=== PATIENT | female | born 1975 | race Caucasian/White ===

== ENCOUNTER → 2019-08-07 | Outpatient (CLI) | payer MEDICAID, BC ==
--- NOTE | 2019-08-07 09:34 | US ---
EXAMINATION TYPE: US thyroid st tissue head/neck DATE OF EXAM: 08/07/2019 COMPARISON: NONE CLINICAL HISTORY: E04.1 Thyroid Nodule. Thyroid nodule, patient on thyroid meds GLAND SIZE: Right Lobe: 4.3 x 1.0 x 1.8 cm Overall Parenchyma: homogenous Left Lobe: 4.1 x 1.2 x 1.5 cm Overall Parenchyma: heterogeneous Isthmus Thickness: 0.3 cm NODULES RIGHT: # of nodules measured on right: 1 1. 0.9 X 0.7 x 0.8 cm hyperechoic solid nodule at the lower pole with well-defined margins. This no dule is wider than tall and shows intranodular vascularity. Prior size: no previous LEFT: # of nodules measured on left: 1 1. 0.6 X 0.5 x 0.8 cm hypoechoic solid nodule at the medial mid pole with well-defined margins. Thi s nodule is wider than tall and shows intranodular vascularity. Prior size: no previous ISTHMUS: # of nodules measured in the isthmus: 0 Bilateral neck scanned, no evidence of lymphadenopathy. IMPRESSION: Bilateral subcentimeter nodules. Nodule on the left is somewhat increased vascularity. Periphery.
== END ==
LOC: RADUSWWP 08:42
PROVIDERS: ATTEND Family Medicine
DX: E04.2 Nontoxic multinodular goiter (principal); R22.0 Localized swelling, mass and lump, head
CPT/HCPCS: 76536

== ENCOUNTER → 2019-11-08 | Outpatient (CLI) | payer MEDICAID, BC ==
--- NOTE | 2019-11-13 13:09 | MM ---
Reason for exam: screening (asymptomatic). Last mammogram was performed 1 year and 3 months ago. Physical Findings: A clinical breast exam by your physician is recommended on an annual basis and results should be correlated with mammographic findings. MG 3D Screen Mammo Imp/Cad Bilateral CC and MLO view(s) were taken. Prior study comparison: August 06, 2018, mammogram. April 15, 2017, mammogram. The breast tissue is heterogeneously dense. This may lower the sensitivity of mammography. No suspicious abnormality. Bilateral retropectoral silicone implants. No significant changes when compared with prior studies. ASSESSMENT: Negative, BI-RAD 1 RECOMMENDATION: Routine screening mammogram of both breasts in 1 year.
== END | disposition home or self-care (01) ==
LOC: RADMAMWWP 13:19
PROVIDERS: ATTEND Family Medicine
DX: Z12.31 Encounter for screening mammogram for malignant neoplasm of breast (principal)
CPT/HCPCS: 77063; 77067

== ENCOUNTER → 2020-08-13 | Outpatient (CLI) | payer MEDICAID, BC ==
--- NOTE | 2020-08-13 08:53 | US ---
EXAMINATION TYPE: US thyroid st tissue head/neck DATE OF EXAM: 08/13/2020 COMPARISON: US 08/07/2019 CLINICAL HISTORY: E04.1 SINGLE THYROID NODULE. GLAND SIZE: Right Lobe: 4.9 x 1.2 x 1.4 cm Overall Parenchyma: heterogenous Left Lobe: 4.2 x 1.1 x 1.6 cm Overall Parenchyma: heterogeneous Isthmus Thickness: 0.3 cm NODULES RIGHT: # of nodules measured on right: 1 1. 0.8 X 0.7 x 0.5 cm solid or almost completely solid, hyperechoic nodule, which is wider than macie l, with smooth margins, without echogenic foci. Prior size: 0.9 x 0.7 x 0.8 cm LEFT: # of nodules measured on left: 1. 0.7 X 0.5 x 0.8 cm solid or almost completely solid, hypoechoic nodule, which is wider than tall , with smooth margins, without echogenic foci. Prior size: 0.6 x 0.5 x 0.8 cm ISTHMUS: # of nodules measured in the isthmus: 0 Bilateral neck scanned, no evidence of lymphadenopathy. IMPRESSION: 1. Stable subcentimeter thyroid nodules. 2. Heterogeneous thyroid tissue correlate for thyroiditis.
== END | disposition home or self-care (01) ==
LOC: RADUSWWP 08:11
PROVIDERS: ATTEND Family Medicine
DX: E04.2 Nontoxic multinodular goiter (principal); R93.89 Abnormal findings on diagnostic imaging of other specified body structures
CPT/HCPCS: 76536

== ENCOUNTER 2020-10-17 07:12 | Day surgery (SDC) | payer MEDICAID, BC ==
[2020-10-15 15:12] VITALS: BMI 40.4
[~2020-10-17 07:12] MED LIST: LACTATED RINGERS 1,000 ML IV SCH; LIDOCAINE 1% (10MG/ML) FOR IV START INTRADERMA PRN
[2020-10-17 07:30] VITALS: TEMP 97.4
[2020-10-17] MEDS ORDERED: PROPOFOL 10 MG/ML 20 ML VIAL IV ONE (08:15)
[2020-10-17] MEDS ORDERED: LIDOCAINE 1% INJ 10MG/ML (20 ML MDV) ONE (08:15)
--- NOTE | 2020-10-17 08:35 | P.PCN ---
Date of Procedure: 10/17/20 Description of Procedure: BRIEF HISTORY: Patient is a 45-year-old female presenting for outpatient esophagogastroduodenoscopy evaluation of GERD. She reports a long-standing history of reflux. Frequent symptoms, however improve control on omeprazole therapy. No prior EGD. PROCEDURE PERFORMED: Esophagogastroduodenoscopy with biopsy. PREOPERATIVE DIAGNOSIS: GERD, heartburn . ESTIMATED BLOOD LOSS: Minimal. IV sedation per anesthesia. PROCEDURE: After informed consent was obtained, the patient was brought into the endoscopy unit. IV sedation was administered by Anesthesia under continuous monitoring. Initially the Olympus GIF-190 video endoscope was inserted into the mouth. Esophagus intubated without any difficulty. It was gradually advanced into the stomach and duodenum and carefully examined. The bulb and the second part of the duodenum appeared normal., With biopsies taken to rule out celiac sprue The scope at this time was withdrawn to the stomach, adequately insufflated with air, and upon careful examination, mucosa of the antrum, body, cardia and the fundus appeared normal, Except for some mild punctate erythema in the antrum and body suggestive of mild gastritis with biopsies taken. The scope was then withdrawn into the esophagus. The GE junction was located at 40 cm from the incisors, and biopsied. The esophagus appeared normal. There were no erosions or ulcerations seen and the patient tolerated the procedure well. IMPRESSION: 1. Mild gastritis . 2. Biopsies of the duodenum, antrum body and GE junction. 3. No evidence of ulceration, esophagitis or other abnormalities on evaluation of the esophagus. RECOMMENDATIONS: The findings of this examination were discussed with the patient.. Okay to resume diet. Okay to resume medications. Await pathology from biopsies. Follow up in the primary care office as previously scheduled.
[2020-10-17 08:43] VITALS: PULSE 77
[2020-10-17 08:59] VITALS: BP 107/74; RESP 18
== END 2020-10-17 09:11 | disposition home or self-care (01) ==
LOC: ORWHC2ENDO 07:12
PROVIDERS: ATTEND Internal Medicine
DX: K21.00 Gastro-esophageal reflux disease with esophagitis, without bleeding (principal); K29.50 Unspecified chronic gastritis without bleeding; E07.9 Disorder of thyroid, unspecified; D69.1 Qualitative platelet defects; Z79.899 Other long term (current) drug therapy; Z88.5 Allergy status to narcotic agent; Z79.890 Hormone replacement therapy; Z98.890 Other specified postprocedural states; Z90.710 Acquired absence of both cervix and uterus; Z98.51 Tubal ligation status; Z91.89 Other specified personal risk factors, not elsewhere classified
CPT/HCPCS: 88305; 43239; J2001; J2704

== ENCOUNTER → 2021-02-06 | Outpatient (CLI) | payer MEDICAID, BC ==
--- NOTE | 2021-02-07 09:04 | MM ---
Reason for exam: screening (asymptomatic). Last mammogram was performed 1 year and 3 months ago. History: Retro-pectoral silicone gel implants, 2019. Physical Findings: A clinical breast exam by your physician is recommended on an annual basis and results should be correlated with mammographic findings. MG 3D Screen Mammo Imp/Cad Bilateral CC, MLO, and ID view(s) were taken. Prior study comparison: November 08, 2019, bilateral MG 3d screen mammo imp/cad. August 06, 2018, mammogram. The breast tissue is heterogeneously dense. This may lower the sensitivity of mammography. Stable benign calcifications. Bilateral implants are intact. No significant changes when compared with prior studies. ASSESSMENT: Benign, BI-RAD 2 RECOMMENDATION: Routine screening mammogram of both breasts in 1 year.
== END | disposition home or self-care (01) ==
LOC: RADMAMWWP 13:01
PROVIDERS: ATTEND Family Medicine
DX: Z12.31 Encounter for screening mammogram for malignant neoplasm of breast (principal)
CPT/HCPCS: 77063; 77067

== ENCOUNTER 2021-05-24 16:35 | Emergency (ER) | payer OTHER, MEDICAID, BC ==
[2021-05-24 16:42] VITALS: BP 163/112; PULSE 71; RESP 16; TEMP 98
[2021-05-24] MEDS ORDERED: LIDOCAINE 5% PATCH TOPICAL STA (16:58)
[2021-05-24] MEDS ORDERED: CYCLOBENZAPRINE 5 MG TAB PO STA (16:58)
[2021-05-24] MEDS ORDERED: CYCLOBENZAPRINE 10 MG TAB PO STA (16:58)
[2021-05-24] MEDS ORDERED: KETOROLAC 15 MG/ML 1 ML VIAL IM STA (16:58)
--- NOTE | 2021-05-24 17:10 | ED ---
Back Pain HPI - General Chief Complaint: Back Pain/Injury Stated Complaint: Back injury/IHS Time Seen by Provider: 05/24/21 16:46 Source: patient Limitations: physical limitation - History of Present Illness Initial Comments: 45-year-old male presenting to the emergency department with a chief complaint of back pain. Patient reports she was working earlier today when she bent over, felt sudden onset of pain in the lower lumbar region without any radiation. Patient reports the pain is exacerbated with any movement, weightbearing, left and right rotation or laying down. States sitting still is the only alleviating factor. States she took Tylenol and Motrin at home with no significant improvement in symptoms. She denies any saddle anesthesia, urinary retention with overflow or bowel incontinence. Denies prior history of back pain. Denies any abdominal pain nausea vomiting diarrhea. Denies urinary or vaginal symptoms. - Related Data Home Medications Medication Instructions Recorded Confirmed Calcium Carbonate [Calcium] 600 mg PO DAILY 10/15/20 10/15/20 Cholecalciferol (Vitamin D3) 125 mcg PO DAILY 10/15/20 10/15/20 [Vitamin D3 (5000 Iu)] Levothyroxine Sodium [Synthroid] 75 mcg PO HS 10/15/20 10/15/20 Multivitamins, Thera [Multivitamin 1 tab PO DAILY 10/15/20 10/15/20 (formulary)] Omeprazole 40 mg PO HS 10/15/20 10/15/20 Vitamin C/Biotin [Hair, Skin and 1 each PO DAILY 10/15/20 10/15/20 Nails] Previous Rx's Medication Instructions Recorded Cyclobenzaprine [Flexeril] 10 mg PO TID PRN #15 tab 05/24/21 Allergies Allergy/AdvReac Type Severity Reaction Status Date / Time meperidine [From Demerol] AdvReac Confusion Verified 05/24/21 16:43 morphine AdvReac Confusion, Verified 05/24/21 16:43 itchy Review of Systems ROS Statement: Those systems with pertinent positive or pertinent negative responses have been documented in the HPI. ROS Other: All systems not noted in ROS Statement are negative. 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 w/no problems History of Any Multi-Drug Resistant Organisms: None Reported Past Surgical History: Breast Surgery, Hysterectomy, Tubal Ligation Additional Past Surgical History / Comment(s): breast implants, LEEP procedure Past Anesthesia/Blood Transfusion Reactions: Postoperative Nausea & Vomiting (PONV) Past Psychological History: No Psychological Hx Reported Smoking Status: Never smoker Past Alcohol Use History: None Reported Past Drug Use History: None Reported General Exam Limitations: physical limitation General appearance: alert, in no apparent distress Head exam: Present: atraumatic, normocephalic, normal inspection Eye exam: Present: normal appearance Pupils: Present: normal accommodation ENT exam: Present: normal exam, normal oropharynx, mucous membranes moist Neck exam: Present: normal inspection, full ROM. Absent: tenderness Respiratory exam: Present: normal lung sounds bilaterally. Absent: respiratory distress, wheezes, rales Cardiovascular Exam: Present: regular rate, normal rhythm, normal heart sounds. Absent: systolic murmur Extremities exam: Present: normal inspection, full ROM Back exam: Present: normal inspection, full ROM, tenderness (Lower lumbar tenderness) Neurological exam: Present: alert, oriented X3 Psychiatric exam: Present: normal affect, normal mood Skin exam: Present: warm, dry, intact, normal color Course Vital Signs 05/24/21 16:40 Temperature 98.0 F Pulse Rate 71 Respiratory 16 Rate Blood Pressure 163/112 O2 Sat by Pulse 97 Oximetry Medical Decision Making - Medical Decision Making 45-year-old female presenting to the emergency department with a chief complaint of back pain. On physical examination, tenderness over the lower lumbar region. Limit her range of motion left and right rotation due to pain. No concern for cauda equina at this time. Patient was given Toradol, Flexeril and Lidoderm patch. On reevaluation, she reports improvement in symptoms and wants to be discharged. X-ray showed degenerative disc changes in the lower lumbar spine. I gave her contact information to follow-up with retail presentation specialist. Return parameters were thoroughly discussed the patient was understanding and agreeable. Disposition Clinical Impression: Mechanical back pain, Strain of lumbar region Disposition: HOME SELF-CARE Condition: Stable Instructions (If sedation given, give patient instructions): Acute Low Back Pain (ED) Additional Instructions: Please return to the Emergency Department if symptoms worsen or any other concerns. Follow-up with retail presentation specialist Prescriptions: Cyclobenzaprine [Flexeril] 10 mg PO TID PRN #15 tab PRN Reason: Muscle Spasm Is patient prescribed a controlled substance at d/c from ED?: No Referrals: Darshan Neves MD [Primary Care Provider] - 1-2 days Flora Velazquez DO [Doctor of Osteopathic Medicine] - 1-2 days Time of Disposition: 17:58
--- NOTE | 2021-05-24 17:34 | XR ---
EXAMINATION TYPE: XR lumbar spine 2 or 3V DATE OF EXAM: 05/24/2021 COMPARISON: NONE HISTORY: Sharp low back pain TECHNIQUE: Frontal and lateral views of the lumbar spine with coned down lateral views of the lumbosa cral junction. FINDINGS: 5 lumbar type vertebral bodies. Vertebral body heights and alignment are maintained. No spondylolisth esis or spondylolysis. No acute fracture or subluxation. Mild multilevel degenerative disc changes with disc height loss seen osteophyte formation most pronou nced at L4-5 and L5-S1. Mild facet arthropathy of the lower lumbar spine most pronounced at L4-5 and L5-S1. IMPRESSION: 1. No acute fracture or subluxation. 2. Mild multilevel degenerative changes most pronounced at L4-5 and L5-S1.
== END 2021-05-24 18:10 | disposition home or self-care (01) ==
LOC: EC 16:35
DX: S39.012A Strain of muscle, fascia and tendon of lower back, initial encounter (principal); K21.9 Gastro-esophageal reflux disease without esophagitis; Z88.5 Allergy status to narcotic agent; Z79.890 Hormone replacement therapy; Z79.899 Other long term (current) drug therapy; X58.XXXA Exposure to other specified factors, initial encounter
CPT/HCPCS: 72100; 96372; 99283; J1885

== ENCOUNTER → 2021-12-25 | Outpatient (CLI) | payer MEDICAID, BC ==
[2021-12-25 13:56] VITALS: BP 138/87; PULSE 78; TEMP 98.1; BMI 38.5
--- NOTE | 2021-12-25 16:20 | P.HPBAR ---
Bariatric H&P - History & Physicial H&P Date: 12/25/21 History & Physicial: Visit/CC: initial clinic visit Patient initial contact: Initial weight: Initial weight in pounds: Height: 5 ft 10 in Initial BMI: Last weight: Current weight: 122.016 kg Current weight in pounds: 269.00 Current BMI: 38.5 [place] body weight (based on NIH guidelines): 68.039 kg Excess body weight loss: The patient is a 46 year-old F who presents for Bariatric Assessment. Patient seen today in the bariatric clinic to discuss bariatric surgical options. Patient has suffered with her weight for many years. Currently BMI 48. Patient suffers from mild sleep apnea, mild reflux symptoms. Patient says she has good relief of her heartburn with oral antiacid use. She had an EGD October 2020 showing mild gastritis. No hiatal hernia was seen. 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 She has had surgeries with no hemorrhagic complications or clotting issues. No history of DVT. No tobacco use. Patient is interested in sleeve gastrectomy. 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 w/no problems History of Any Multi-Drug Resistant Organisms: None Reported Past Surgical History: Breast Surgery, Hysterectomy, Tubal Ligation Additional Past Surgical History / Comment(s): breast implants, LEEP procedure Past Anesthesia/Blood Transfusion Reactions: Postoperative Nausea & Vomiting (PONV) Past Psychological History: No Psychological Hx Reported Smoking Status: Never smoker Past Alcohol Use History: None Reported Past Drug Use History: None Reported Surgical - Exam Vital Signs Temp Pulse BP 98.1 F 78 138/87 12/25/21 13:52 12/25/21 13:52 12/25/21 13:52 Physical exam: General: Well-developed, well-nourished HEENT: Normocephalic, sclerae nonicteric Abdomen: Nontender, nondistended Extremities: No edema Neuro: Alert and oriented Bariatric Assessment & Plan (1) Obesity (BMI 30-39.9) Narrative/Plan: 46-year-old female with severe obesity and associated comorbidities. Bariatric surgical options and their associated risks and benefits discussed in detail with the patient. Patient does have frequent heartburn although controlled with oral medications. Discussed long-term risk of increased reflux with sleeve gastrectomy as opposed to gastric bypass. Despite that patient would like to proceed with sleeve gastrectomy at this time. Do not require preoperative EGD because of the EGD performed one year ago. Patient will follow-up with me towards the tail end of her supervised weight loss. Status: Acute Bariatric Checklist Checklist: Plan: Checklist: EGD: 1. Hiatal hernia: 2. H. Pylori: HgbA1c: Vitamin D: Smoking: Primary care physician referral: dr mejia Psychiatry clearance: Cardiology clearance: Sleep study: Diet journal: VTE risk score: VTE risk level: Rehab needs at discharge:
== END ==
LOC: BARWHC3 13:31
PROVIDERS: ATTEND Surgery
DX: E66.01 Morbid (severe) obesity due to excess calories (principal); Z68.42 Body mass index [BMI] 45.0-49.9, adult; Z88.5 Allergy status to narcotic agent
CPT/HCPCS: 99211

== ENCOUNTER → 2022-03-20 | Outpatient (CLI) | payer MEDICAID, BC ==
--- NOTE | 2022-03-22 08:19 | US ---
EXAMINATION TYPE: US thyroid st tissue head/neck DATE OF EXAM: 03/20/2022 COMPARISON: Prior thyroid ultrasound August 13, 2020 CLINICAL HISTORY: E04.1 Thyroid Nodule. GLAND SIZE: Right Lobe: 5.2 x 1.2 x 1.6 cm Overall Parenchyma: heterogenous Left Lobe: 5.0 x 1.2 x 1.7 cm Overall Parenchyma: heterogeneous Isthmus Thickness: 0.4 cm NODULES RIGHT: # of nodules measured on right: 1 1. 0.7 X 0.6 x 0.6 cm, lower lateral, solid or almost completely solid, isoechoic nodule, which is wider than tall, with ill-defined margins, without echogenic foci. Prior size: 0.8 x 0.7 x 0.5 cm LEFT: # of nodules measured on left: 1 1. 0.9 X 0.6 x 1.0 cm, upper medial, solid or almost completely solid, hypoechoic nodule, which is wider than tall, with smooth margins, without echogenic foci. Prior size: 0.7 x 0.5 x 0.7 cm ISTHMUS: # of nodules measured in the isthmus: 0 Bilateral neck scanned, no evidence of lymphadenopathy. Persistent heterogeneous normal-sized thyroid with stable small single bilateral nodules. IMPRESSION: As above. No significant change from prior.
--- NOTE | 2022-03-23 08:59 | MM ---
Reason for Exam: Hx of breast augmentation, asymptomatic. Last mammogram was performed 1 year(s) and 2 month(s) ago. Patient History: Menarche at age 16. First Full-Term at age 20. Hysterectomy at age 32. 2019, Implant(s). Risk Values: [place] 5 year model risk: 0.5%. NCI Lifetime model risk: 6.4%. Prior Study Comparison: 08/06/2018 Screening Mammogram, Unknown. 11/08/2019 Bilateral Screening Mammogram, [facility]. 02/06/2021 Bilateral Screening Mammogram, [facility]. Tissue Density: There are scattered fibroglandular densities. Findings: Analyzed By CAD. Subpectoral bilateral breast implants are redemonstrated. Occasional scattered benign-appearing round calcification bilaterally are redemonstrated. Benign-appearing bilateral axillary nodes on current study. There is no suspicious group of microcalcifications or new suspicious mass in either breast. Overall Assessment: Benign, BI-RAD 2 Management: Screening Mammogram of both breasts in 1 year. A clinical breast exam by your physician is recommended on an annual basis and results should be correlated with mammographic findings. Electronically signed and approved by: Eleazar Ortiz M.D.
== END | disposition home or self-care (01) ==
LOC: RADUSWWP 16:05
PROVIDERS: ATTEND Family Medicine
DX: Z12.31 Encounter for screening mammogram for malignant neoplasm of breast (principal); E04.2 Nontoxic multinodular goiter; R92.1 Mammographic calcification found on diagnostic imaging of breast
CPT/HCPCS: 76536; 77063; 77067

== ENCOUNTER → 2022-03-23 | Outpatient (CLI) | payer MEDICAID, BC ==
[2022-03-23 10:23] VITALS: BP 137/91; PULSE 80; RESP 16; TEMP 97.9; BMI 39.4
--- NOTE | 2022-03-23 11:27 | P.BASOAP ---
Subjective Progress Note Date: 03/23/22 Principal diagnosis: Morbid obesity 46-year-old female returns for bariatric evaluation. Patient remains interested in sleeve gastrectomy. Suffers from mild sleep apnea and mild GERD symptoms. Current BMI 39.5. Patient has a history of platelet disorder. She has not seen hematology since 2016. No history of bleeding with prior surgeries. No tobacco use. Objective - Vital Signs Vital signs: Vital Signs Temp 97.9 F 03/23/22 10:15 Pulse 80 03/23/22 10:15 Resp 16 03/23/22 10:15 BP 137/91 03/23/22 10:15 Pulse Ox FiO2 Intake & Output 03/22/22 03/23/22 03/23/22 18:59 06:59 18:59 Weight 124.738 kg - Exam Abdomen: Soft, nontender, nondistended Assessment/Plan (1) Obesity (BMI 30-39.9) Narrative/Plan: 46-year-old female interested in sleeve gastrectomy. Review the surgical consent form in detail. All questions answered. Increased risk of postoperative reflux reviewed. Increased risk of postoperative bleeding because her platelets were also discussed. Will have patient seen by hematology preoperatively. We'll tentatively proceed with laparoscopic da [place] assisted sleeve gastrectomy, possible open in late June or early July. Patient's son is getting on June 27. The risks of bleeding, infection, stenosis, stricture, leak, abscess, fistula formation, peritonitis, poor weight loss, reflux, vomiting, conversion to an open procedure, aborting sleeve gastrectomy, MT, PE, DVT, and were discussed. The patient understands and wishes to proceed. Plan: Date: 03/23/22 Initial Weight: Initial BMI: Current Weight: 124.738 kg Current BMI: 39.4 Type of Surgery: Vertical Sleeve Gastrectomy Total Volume in Band: Previous Volume: Volume Removed: Volume Added: Band Size:
== END ==
LOC: BARWHC3 08:39
PROVIDERS: ATTEND Surgery
DX: E66.01 Morbid (severe) obesity due to excess calories (principal); Z68.39 Body mass index [BMI] 39.0-39.9, adult; Z98.84 Bariatric surgery status
CPT/HCPCS: 97804; 99211

== ENCOUNTER → 2022-06-10 | Outpatient (CLI) | payer MEDICAID, BC ==
--- NOTE | 2022-06-11 12:14 | NM ---
EXAMINATION TYPE: NM thyroid image w uptake DATE OF EXAM: 06/11/2022 COMPARISON: NONE HISTORY: E05.90 hyperthyroidism TECHNIQUE: Thyroid iodine uptake is calculated and images performed after the oral administration of 304 uCi 1-123 Capsule. FINDINGS: There is normal distribution of activity throughout the gland. The 4 hour iodine uptake is calculated at 17.8% (normal range 8-14%). The 24-hour iodine uptake is calculated at 42.6 % (juan luis l range 15-35%). Homogeneous distribution radiotracer throughout the thyroid lobes without evidence for hot or cold no dule at this time. IMPRESSION: Mildly elevated 4 and 24 hour uptake. Correlate with thyroid function testing.
== END | disposition home or self-care (01) ==
LOC: RADNMMAIN 08:29
PROVIDERS: ATTEND Internal Medicine Endocrinology, Diabetes & Metabolism
DX: E05.90 Thyrotoxicosis, unspecified without thyrotoxic crisis or storm (principal)
CPT/HCPCS: 78014; A9516

== ENCOUNTER 2022-07-20 11:15 | Inpatient (IN) | payer MEDICAID, BC ==
[2022-07-14 05:19] LABS: Basophils % (A) 1 %; Eosinophils # (A) 0.2 k/uL (0-0.7); Eosinophils % (A) 2 %; HCT 45.2 % (34.0-46.0); HGB 14.9 gm/dL (11.4-16.0); Lymphocytes # (A) 1.5 k/uL (1.0-4.8); Lymphocytes % (A) 20 %; MCH 27.5 pg (25.0-35.0); MCHC 32.9 g/dL (31.0-37.0); MCV 83.6 fL (80.0-100.0); Mean Platelet Volume 6.8; Monocytes # (A) 0.5 k/uL (0-1.0); Monocytes % (A) 7 %; Neutrophils # (A) 5.3 k/uL (1.3-7.7); Neutrophils % (A) 69 %; Platelet Count 225 k/uL (150-450); RBC 5.41 m/uL (3.80-5.40); WBC 7.7 k/uL (3.8-10.6)
[2022-07-14 05:30] LABS: ALT 19 U/L (4-34); AST 24 U/L (14-36); African American GFR (CKD) >90 (>60 ml/min/1.73 sqM); Albumin 4.9 g/dL (3.5-5.0); Alkaline Phosphatase 62 U/L (38-126); Anion Gap 13 mmol/L; Blood Urea Nitrogen 26 mg/dL (7-17); Calcium 9.9 mg/dL (8.4-10.2); Carbon Dioxide 24 mmol/L (22-30); Chloride 99 mmol/L (98-107); Globulin 2.4 g/dL; Glucose 105 mg/dL (74-99); Non-African American GFR(CKD) 89 (>60 ml/min/1.73 sqM); Potassium 4.4 mmol/L (3.5-5.1); Sodium 136 mmol/L (137-145); Total Bilirubin 0.4 mg/dL (0.2-1.3); Total Protein 7.3 g/dL (6.3-8.2)
[2022-07-14 05:47] LABS: T4, Free (Free Thyroxine) 1.18 ng/dL (0.78-2.19)
--- NOTE | 2022-07-20 10:08 | P.GSHP ---
History of Present Illness H&P Date: 07/20/22 Chief Complaint: Morbid obesity 46-year-old female initially seen in the office for bariatric assessment in December. Patient interested in sleeve gastrectomy. History of previous EGD by GI in early 2020 showing gastritis without hiatal hernia. Patient suffers with mild sleep apnea, mild reflux symptoms. Patient stated that she is told in the past she may have a bleeding disorder. She was seen by hematology and cleared for surgery. No history of DVT or dysphagia. No tobacco use. BMI on initial presentation 41, in March was 39.5. 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 w/no problems,. hyperthyroid History of Any Multi-Drug Resistant Organisms: None Reported Past Surgical History: Breast Surgery, Hysterectomy, Tubal Ligation Additional Past Surgical History / Comment(s): breast implants, LEEP procedure, EGD Past Anesthesia/Blood Transfusion Reactions: Postoperative Nausea & Vomiting (PONV) Additional Past Anesthesia/Blood Transfusion Reaction / Comment(s): PONV x1, no hx. of blood transfusion reaction Smoking Status: Never smoker - Past Family History Mother Family Medical History: No Reported History Medications and Allergies Home Medications Medication Instructions Recorded Confirmed Type Omeprazole 40 mg PO HS 10/15/20 07/10/22 History methIMAzole [Tapazole] 2.5 mg PO HS 07/10/22 07/10/22 History Allergies Allergy/AdvReac Type Severity Reaction Status Date / Time meperidine [From Demerol] AdvReac Confusion Verified 07/10/22 15:47 morphine AdvReac Confusion, Verified 07/10/22 15:47 itchy Surgical - Exam Physical exam: General: Well-developed, well-nourished HEENT: Normocephalic, sclerae nonicteric Abdomen: Nontender, nondistended Extremities: No edema Neuro: Alert and oriented Results - Labs 07/14/22 05:00 07/14/22 05:00 Assessment and Plan (1) Obesity (BMI 30-39.9) Narrative/Plan: 46-year-old female with obesity and comorbidities. We'll proceed with laparosco pic and she assisted sleeve gastrectomy, possible open. The risks of bleeding, infection, stenosis, stricture, leak, abscess, fistula formation, peritonitis, poor weight loss, reflux, vomiting, conversion to an open procedure, aborting sleeve gastrectomy, [place], PE, DVT, and were discussed. The patient understands and wishes to proceed. Status: Acute Code(s): E66.9 - OBESITY, UNSPECIFIED SNOMED Code(s): 677656930
[~2022-07-20 11:15] MED LIST changes: +DEXAMETHASONE SOD PHOSPHATE 4 MG/ML 1 ML VIAL IV ONE; +ENOXAPARIN 40 MG/0.4 ML SYRINGE SQ PRN; -LACTATED RINGERS 1,000 ML IV SCH; -LIDOCAINE 1% (10MG/ML) FOR IV START INTRADERMA PRN; +MIDAZOLAM 2 MG/2 ML VIAL IV PRN; +ONDANSETRON 4 MG/2 ML VIAL IVP ONE; +SCOPOLAMINE 1 MG/72 HR PATCH TRANSDERM ONE; +ceFAZolin 3 GM in SODIUM CHLORIDE 0.9% 100 ML IVPB PRN; +fentaNYL (PF) 50 MCG/ML 2 ML AMP IV PRN
[2022-07-20] MEDS ORDERED: LACTATED RINGERS 1,000 ML IV ONE ×3 (13:39→15:56)
[2022-07-20] MEDS ORDERED: DEXAMETHASONE SOD PHOSPHATE 4 MG/ML 1 ML VIAL IVP ONE (13:59)
[2022-07-20] MEDS ORDERED: ONDANSETRON 4 MG/2 ML VIAL IVP ONE (13:59)
[2022-07-20] MEDS ORDERED: SCOPOLAMINE 1 MG/72 HR PATCH TRANSDERM ONE (13:59)
[2022-07-20] MEDS ORDERED: NEOSTIGMINE 1 MG/ML 10 ML VIAL ONE (14:30)
[2022-07-20] MEDS ORDERED: PROPOFOL 10 MG/ML 20 ML VIAL IV ONE (14:30)
[2022-07-20] MEDS ORDERED: ROCURONIUM 10 MG/ML (5 ML VIAL) IV ONE (14:30)
[2022-07-20] MEDS ORDERED: LIDOCAINE 2% INJ 20 MG/ML (2 ML VIAL) ONE (14:30)
[2022-07-20] MEDS ORDERED: HYDROmorphone (PF) 1 MG/ML ONE (14:30)
[2022-07-20] MEDS ORDERED: fentaNYL (PF) 50 MCG/ML 2 ML AMP ONE (14:30)
[2022-07-20] MEDS ORDERED: KETOROLAC 15 MG/ML 1 ML VIAL ONE (14:30)
[2022-07-20] MEDS ORDERED: MIDAZOLAM 2 MG/2 ML VIAL ONE (14:30)
[2022-07-20] MEDS ORDERED: GLYCOPYRROLATE 0.2 MG/ML 2 ML VIAL ONE (14:30)
[2022-07-20] MEDS ORDERED: LIDOCAINE 1%-EPI 1:100,000 20 ML VIAL SQ ONE (14:53)
[2022-07-20] MEDS ORDERED: HYDROmorphone 0.5 MG/0.5 ML SYRINGE IVP ONE ×3 (16:25→17:13)
[2022-07-20] MEDS ORDERED: NALOXONE 0.4 MG/ML 1 ML VIAL IV PRN (16:27)
[2022-07-20] MEDS ORDERED: diphenhydrAMINE 50 MG/ML 1 ML VIAL IVP PRN (16:27)
[2022-07-20] MEDS ORDERED: HYOSCYAMINE ORAL DROPS 1.875 MG/15 ML BOTTLE PO PRN (16:27)
--- NOTE | 2022-07-20 16:30 | P.OP ---
Date of Procedure: 07/20/22 Procedure(s) Performed: PREOPERATIVE DIAGNOSIS: Morbid obesity, GERD, sleep apnea POSTOPERATIVE DIAGNOSIS: Same PROCEDURE: Da Carlota assisted laparoscopic sleeve gastrectomy SURGEON: Sánchez EBL: Minimal ANESTHESIA: General COMPLICATIONS: None OPERATIVE PROCEDURE: Patient was placed in the operating table in the supine position. The patient was then placed under general anesthesia at that time. The abdomen was prepped and draped in the usual sterile fashion. A 5 mm optical trocar was placed in the left upper quadrant 20 cm inferior to the xiphoid process. Insufflation took place up to 15 mmHg. No adhesions were seen. A 5 mm subxiphoid incision was made and the medium Radha retractor was used to elevate the left lobe of liver anteriorly. This was held in place using the fixed arm retractor. An additional 12 mm trocar was placed in the right paramedian location and 2 additional 8 mm trochars were placed in the left upper quadrant one medial and one lateral to the initially placed optical trocar. All of these trochars were placed along the same plane. The initial 5 was then switched to an 8 mm trocar. The robot was then docked appropriately. The 8 mm camera was placed in the left paramedian trocar site down viewing. A fenestrated bipolar was placed in arm 1, arm 3 had the vessel sealer, arm 4 had the small grasper retractor. The hiatus was inspected and there was no visible hiatal hernia. At that point I moved to the distal aspect of the greater curvature the stomach. The short gastric vasculature were divided using the vessel sealer. This dissection took place distally until we were 4 cm from the pylorus. The posterior adhesions were divided as well. The dissection then took place proximally along the stomach until the posterior short gastrics were divided and the fundus of the stomach was fully mobilized. Once the stomach was fully mobilized the blunt tipped 40-Occitan bougie dilator was advanced into the stomach and advanced all the way to the prepyloric location. The patient's stomach by palpation seemed to be of average thickness. No buttressing was utilized. A total of 6 staple loads were utilized using the 60 mm stapler. The first load was green, next 3 were blue, last 2 were white. The stomach was then placed in the right upper quadrant after it was fully excised. The oral gastric tube was reinserted. The stomach was insufflated with approximately 100 mL of methylene blue. No evidence of leak or obstruction was seen. Tisseel fibrin glue was then used along the length of the staple line. The robot was then undocked. The da Carlota laparoscope was used and the stomach was removed from the 12 mm trocar site without difficulty. The fascia at the 12mm site was closed using [id number] 0 Vicryl sutures with the laparoscopic suture passer and Efrain Henrik technique. The insufflation was evacuated. The skin at all 5 incisions were closed using 4-0 Monocryl sutures. Skin glue was then applied. DISPOSITION: Stable to recovery room
[2022-07-20] MEDS ORDERED: ONDANSETRON 4 MG/2 ML VIAL ONE (18:33)
[2022-07-20] MEDS: ACETAMINOPHEN IV (For NPO) 1,000 MG in EMPTY BAG 1 BAG IVPB SCH (18:35)
[2022-07-20] MEDS: LACTATED RINGERS 1,000 ML IV SCH (18:44)
--- NOTE | 2022-07-20 19:00 | P.CONS ---
History of Present Illness - Reason for Consult Consult date: 07/20/22 Medical Management Requesting physician: Vinnie Pozo - History of Present Illness History of Presenting Illness: Patient is a very pleasant 46-year-old female with a past medical history of GERD, morbid obesity with BMI of 36.6 kg/m and hyperthyroidism. She is currently admitted under surgical team status post Da Carlota assisted laparoscopic sleeve gastrectomy completed by Dr. Pozo. We have been consulted for medical management throughout her hospitalization. Patient seen and fully evaluated at the bedside. She currently reports mild postoperative pain and nausea but denies vomiting, chest pain, palpitations, shortness of breath, or experiencing any numbness/tingling/weakness/swelling in her extremities. RN has medicated patient for both pain and nausea at this time. Patient denies history of DVT or PE and is currently tolerating ice chips. Review of systems: Pertinent positives and negatives as discussed in HPI, a complete review of systems was performed and all other systems are negative. Physical exam: Vital signs reviewed and stable. General: Nontoxic, no distress and appears stated age. Derm: Skin warm and dry, normal coloration for ethnicity. Head: Atraumatic, normocephalic and symmetric. Eyes: EOMs intact, no lid lag, and anicteric sclera Mouth: no lip lesions, mucus membranes moist Cardiovascular: regular rate and rhythm with normal S1S2, no murmur, positive posterior tibial pulses bilaterally, and cap refill < 2 seconds. Lungs: Respirations even, regular, and unlabored on room air. Lungs CTA bilaterally, no rhonchi, no rales, no wheezing, and no accessory muscle usage. Abdominal: soft, nontender to palpation, no guarding, no appreciable organomegaly. Postoperative abdominal binder in place, no signs of bleeding or drainage noted Ext: ROM intact. No gross muscle atrophy, no edema, no contractures Neuro: Speech clear, face symmetrical and CN II-XII grossly intact with no noted focal neuro deficits Psych: Alert and oriented to person, place, time, and situation. Appropriate and pleasant affect. Assessment and Plan of Care: Postoperative nausea -Symptomatic care and management with Reglan 10 mg IVP as needed for nausea/vomiting. -Gentle IV fluid hydration. Hyperthyroidism Continue daily medication regimen with methimazole. GERD GI prophylaxis with Protonix 40 mg daily. Status post Da Carlota assisted laparoscopic sleeve gastrectomy Management per primary admitting general surgery team including DVT prophylaxis, pain management, wound care, and advancement of diet. DVT prophylaxis currently with Lovenox We will continue to monitor and follow up with morning labs and provide further recommendations/orders based on results and clinical course. Thank you for allowing us to participate in the care of this pleasant patient. Do not hesitate to contact us with questions. Someone can be reached from the [facility] hospitalist group all hours of the day at [phone] or via [employer]. 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 w/no problems,. hyperthyroid History of Any Multi-Drug Resistant Organisms: None Reported Past Surgical History: Breast Surgery, Hysterectomy, Tubal Ligation Additional Past Surgical History / Comment(s): breast implants, LEEP procedure, EGD Past Anesthesia/Blood Transfusion Reactions: Postoperative Nausea & Vomiting (PONV) Additional Past Anesthesia/Blood Transfusion Reaction / Comm: PONV x1, no hx. of blood transfusion reaction Smoking Status: Never smoker - Past Family History Mother Family Medical History: No Reported History Medications and Allergies Home Medications Medication Instructions Recorded Confirmed Type Omeprazole 40 mg PO HS 10/15/20 07/20/22 History methIMAzole [Tapazole] 2.5 mg PO HS 07/10/22 07/20/22 History Allergies Allergy/AdvReac Type Severity Reaction Status Date / Time meperidine [From Demerol] AdvReac Confusion Verified 07/20/22 13:55 morphine AdvReac Confusion, Verified 07/20/22 13:55 itchy Physical Exam Vitals: Vital Signs Temp Pulse Resp BP BP Pulse Ox 07/20/22 18:23 97.8 F 85 18 159/96 94 L 07/20/22 18:00 77 16 158/68 100 07/20/22 17:15 71 16 166/77 97 07/20/22 17:00 75 16 164/72 99 07/20/22 16:45 68 16 146/72 99 07/20/22 16:30 68 16 161/71 100 07/20/22 16:18 97.4 F L 64 16 159/74 97 07/20/22 13:44 97.8 F 84 16 143/71 95 Intake and Output 07/20/22 07/20/22 07/20/22 06:59 14:59 22:59 Intake Total 2100 700 Output Total 10 Balance 2100 690 Intake: IV 2099 700 Output: Estimated Blood Loss 10 Other: Weight 115.8 kg Results CBC & Chem 7: 07/14/22 05:00 07/14/22 05:00
[2022-07-20] MEDS: methIMAzole 5 MG TAB PO SCH (20:10)
[2022-07-20] MEDS: PANTOPRAZOLE 40 MG/10 ML VIAL IV SCH (20:11)
[2022-07-20] MEDS: HYDROmorphone 0.5 MG/0.5 ML SYRINGE IVP PRN ×2 (20:12→23:36)
[2022-07-20] MEDS: ALBUTEROL NEBULIZED 2.5 MG/3 ML INHALATION SCH (21:04)
[2022-07-20] MEDS: 0.9% NACL WITH KCL 20 MEQ/L 1,000 ML IV SCH (21:10)
[2022-07-20] MEDS: METOCLOPRAMIDE 5 MG/ML 2 ML VIAL IVP PRN (23:37)
[2022-07-21] MEDS: ACETAMINOPHEN IV (For NPO) 1,000 MG in EMPTY BAG 1 BAG IVPB SCH ×5 (00:34→23:36)
[2022-07-21] MEDS: HYDROmorphone 0.5 MG/0.5 ML SYRINGE IVP PRN ×4 (02:30→19:51)
[2022-07-21] MEDS: 0.9% NACL WITH KCL 20 MEQ/L 1,000 ML IV SCH ×3 (03:40→19:54)
[2022-07-21] MEDS: ALBUTEROL NEBULIZED 2.5 MG/3 ML INHALATION SCH ×4 (07:24→20:51)
[2022-07-21] MEDS: PANTOPRAZOLE 40 MG/10 ML VIAL IV SCH (08:18)
[2022-07-21] MEDS: ENOXAPARIN 40 MG/0.4 ML SYRINGE SQ SCH (08:18)
[2022-07-21 08:34] LABS: Basophils # (A) 0.1 k/uL (0-0.2); Basophils % (A) 1 %; Eosinophils % (A) 0 %; HGB 14.4 gm/dL (11.4-16.0); Hypochromasia Slight; Lymphocytes # (A) 1.3 k/uL (1.0-4.8); Lymphocytes % (A) 12 %; MCH 28.2 pg (25.0-35.0); MCV 88.1 fL (80.0-100.0); Monocytes # (A) 0.6 k/uL (0-1.0); Monocytes % (A) 6 %; Neutrophils # (A) 8.6 k/uL (1.3-7.7); Neutrophils % (A) 80 %; Platelet Count 200 k/uL (150-450); RDW 12.2 % (11.5-15.5); WBC 10.7 k/uL (3.8-10.6)
[2022-07-21] MEDS: SIMETHICONE 40 MG/0.6 ML DROPS 2,000 MG/30 ML BOTTLE PO PRN ×2 (08:58→15:35)
[2022-07-21 09:00] LABS: African American GFR (CKD) >90 (>60 ml/min/1.73 sqM); Anion Gap 14 mmol/L; Blood Urea Nitrogen 11 mg/dL (7-17); Calcium 8.5 mg/dL (8.4-10.2); Carbon Dioxide 15 mmol/L (22-30); Chloride 111 mmol/L (98-107); Magnesium 1.9 mg/dL (1.6-2.3); Non-African American GFR(CKD) >90 (>60 ml/min/1.73 sqM); Phosphorus 3.9 mg/dL (2.5-4.5); Potassium 4.9 mmol/L (3.5-5.1); Sodium 140 mmol/L (137-145)
[2022-07-21] MEDS: LACTATED RINGERS 1,000 ML IV SCH (09:20)
[2022-07-21] MEDS: KETOROLAC 15 MG/ML 1 ML VIAL IVP SCH ×4 (10:15→23:36)
[2022-07-21] MEDS ORDERED: ONDANSETRON 4 MG/2 ML VIAL IVP PRN (10:26)
[2022-07-21] MEDS: METOCLOPRAMIDE 5 MG/ML 2 ML VIAL IVP PRN ×2 (10:38→16:59)
--- NOTE | 2022-07-21 12:00 | FL ---
EXAMINATION TYPE: FL UGI DATE OF EXAM: 07/21/2022 COMPARISON: None HISTORY: Post gastric sleeve, nausea TECHNIQUE: A single contrast UGI study is performed. FINDINGS: Contrast passes from the distal esophagus through the gastric sleeve with mild hesitancy. N o extravasation of contrast is evident. Moderate amount of free air is present during this examination greater in the right subdiaphragmatic region Overhead radiographs were obtained which are unremarkable. IMPRESSIONS: 1. Normal post gastric sleeve without obstruction or pneumonia. Hesitancy. No extravasation. 2. Moderate amount of free air present post surgery.
--- NOTE | 2022-07-21 12:55 | P.PN ---
Subjective Progress Note Date: 07/21/22 Hospital course: Patient is a very pleasant 46-year-old female with a past medical history of GERD, morbid obesity with BMI of 36.6 kg/m and hyperthyroidism. She is currently admitted under surgical team status post Da Carlota assisted laparoscopic sleeve gastrectomy completed by Dr. Pozo on 06/19/22. We were consulted for medical management throughout her hospitalization. Physical exam: Patient seen and fully evaluated at bedside. She reports continued nausea, dry heaves, and [id number] postoperative discomfort/pain. Zofran was added on in addition to Reglan for treatment of nausea/vomiting. Patient remains nothing by mouth with ice chips only. Morning vital signs unremarkable with blood pressure 121/65, heart rate 83, respiratory rate 17, and SpO2 of 99% on room air. Vital signs reviewed and stable. General: Nontoxic, no distress and appears stated age. Derm: Skin warm and dry, normal coloration for ethnicity. Head: Atraumatic, normocephalic and symmetric. Eyes: EOMs intact, no lid lag, and anicteric sclera Mouth: no lip lesions, mucus membranes moist Cardiovascular: regular rate and rhythm with normal S1S2, no murmur, positive posterior tibial pulses bilaterally, and cap refill < 2 seconds. Lungs: Respirations even, regular, and unlabored on room air. Lungs CTA bilaterally, no rhonchi, no rales, no wheezing, and no accessory muscle usage. Abdominal: soft, nontender to palpation, no guarding, no appreciable organomegaly. Postoperative abdominal binder in place, no signs of bleeding or drainage noted Ext: ROM intact. No gross muscle atrophy, no edema, no contractures Neuro: Speech clear, face symmetrical and CN II-XII grossly intact with no noted focal neuro deficits Psych: Alert and oriented to person, place, time, and situation. Appropriate and pleasant affect. Assessment and Plan of Care: Postoperative nausea -Symptomatic care and management with Reglan 10 mg IVP and/or Zofran 4 mg IVP q 6 hours as needed for nausea/vomiting. -Gentle IV fluid hydration. Hyperthyroidism Continue daily medication regimen with methimazole. GERD GI prophylaxis with Protonix 40 mg daily. Status post Da Carlota assisted laparoscopic sleeve gastrectomy Management per primary admitting general surgery team including DVT prophyla xis, pain management, wound care, and advancement of diet. DVT prophylaxis currently with Lovenox We will continue to monitor and follow up with morning labs and provide further recommendations/orders based on results and clinical course. Thank you for allowing us to participate in the care of this pleasant patient. Do not hesitate to contact us with questions. Someone can be reached from the [facility] hospitalist group all hours of the day at [phone] or via [employer]. Objective - Vital Signs Vital signs: Vital Signs Temp 98.0 F 07/21/22 07:34 Pulse 83 07/21/22 07:34 Resp 17 07/21/22 07:34 BP 121/65 07/21/22 07:34 Pulse Ox 99 07/21/22 07:34 FiO2 Intake & Output 07/20/22 07/21/22 07/21/22 18:59 06:59 18:59 Intake Total 2800 2000 Output Total 10 Balance 2790 2000 Weight 115.8 kg Intake: IV 2800 Intake, IV Titration 2000 Amount 0.9% NaCl with KCl 20 Meq 1800 /l 1,000 ml @ 150 mls/hr IV .Q6H40M GAIL Rx#: [id number] ACETAMINOPHEN IV (For NPO 200 ) 1,000 mg In Empty Bag 1 bag @ 400 mls/hr IVPB Q6HR GAIL Rx#:[id number] Output: Estimated Blood Loss 10 Other: Voiding Method Toilet # Voids 3 - Labs CBC & Chem 7: 07/21/22 07:27 07/21/22 07:08 Labs: Abnormal Lab Results - Last 24 Hours (Table) 07/21/22 Range/Units 07:27 WBC 10.7 H (3.8-10.6) k/uL Neutrophils # 8.6 H (1.3-7.7) k/uL
[2022-07-21 13:15] VITALS: BMI 36.6
--- NOTE | 2022-07-21 14:28 | P.PN ---
Subjective Progress Note Date: 07/21/22 CHIEF COMPLAINT: Morbid obesity HISTORY OF PRESENT ILLNESS: Patient is postop day #1 status post laparoscopic sleeve gastrectomy. Patient complaining of abdominal pain and nausea this morning. She is passing flatus. She also reports burping. Upper GI showing normal post gastric sleeve without obstruction mild hesitancy. No extravasation. Moderate amount of free air present post surgery. Afebrile. WBC is 10.7 Hgb 14.4 platelets 200 sodium is 140 potassium is 4.9 creatinine 0.62 magnesium 1.9 phosphorus 3.9 TSH less than 0.015 free T4 1.18 total T3 131 PHYSICAL EXAM: VITAL SIGNS: Reviewed. GENERAL: Well-developed in no acute distress. HEENT: No sclera icterus. Extraocular movements grossly intact. Moist buccal mucosa. Head is atraumatic, normocephalic. ABDOMEN: Soft. Nondistended. Nontender. NEUROLOGIC: Alert and oriented. Cranial nerves II through XII grossly intact. ASSESSMENT: 1. Morbid obesity status post laparoscopic sleeve gastrectomy PLAN: -Start Bariatric clear liquid diet -Toradol added for pain -Zofran added for nausea -Encourage patient to ambulate -Encourage patient to use incentive spirometer -Continue IV fluids -GI prophylaxis Protonix and DVT prophylaxis Lovenox Physician Roller Pneumatic note has been reviewed by physician. Signing provider agrees with the documented findings, assessment, and plan of care. I have personally seen and examined the patient, reviewed the RETIREMENT ASSISTANT /PAs history, exam and MDM and agree with the assessment and plan as written. Based on total visit time, I have performed more than 50% of the visit. As above: Patient complaining of mild soreness today. Says it's improved. Upper GI shows no leak or obstruction. Tolerating liquids. Abdominal examination benign. Continue increasing activity. Monitor liquid intake. Rech angel CBC tomorrow. Objective - Vital Signs Vital signs: Vital Signs Temp 98.0 F 07/21/22 07:34 Pulse 83 07/21/22 08:00 Resp 17 07/21/22 08:00 BP 121/65 07/21/22 07:34 Pulse Ox 99 07/21/22 07:34 FiO2 Intake & Output 07/20/22 07/21/22 07/21/22 18:59 06:59 18:59 Intake Total 2800 1999 Output Total 10 Balance 2790 1999 Weight 115.8 kg 115.8 kg Intake: IV 2800 Intake, IV Titration 2000 Amount 0.9% NaCl with KCl 20 Meq 1800 /l 1,000 ml @ 150 mls/hr IV .Q6H40M GAIL Rx#: [id number] ACETAMINOPHEN IV (For NPO 200 ) 1,000 mg In Empty Bag 1 bag @ 400 mls/hr IVPB Q6HR GAIL Rx#:[id number] Output: Estimated Blood Loss 10 Other: Voiding Method Toilet Toilet # Voids 3 - Labs CBC & Chem 7: 07/21/22 07:27 07/21/22 07:08 Labs: Abnormal Lab Results - Last 24 Hours (Table) 07/21/22 07/21/22 Range/Units 07:08 07:27 WBC 10.7 H (3.8-10.6) k/uL Neutrophils # 8.6 H (1.3-7.7) k/uL Chloride 111 H (98-107) mmol/L Carbon Dioxide 15 L (22-30) mmol/L
[2022-07-21] MEDS: methIMAzole 5 MG TAB PO SCH (20:25)
[2022-07-22 02:52] VITALS: RESP 18
[2022-07-22] MEDS: KETOROLAC 15 MG/ML 1 ML VIAL IVP SCH ×2 (05:29→11:54)
[2022-07-22] MEDS: ACETAMINOPHEN IV (For NPO) 1,000 MG in EMPTY BAG 1 BAG IVPB SCH ×2 (05:31→11:54)
[2022-07-22] MEDS: 0.9% NACL WITH KCL 20 MEQ/L 1,000 ML IV SCH ×2 (06:52→09:09)
[2022-07-22] MEDS ORDERED: bisacodyL 5 MG TABLET.DR PO PRN (08:00)
[2022-07-22] MEDS: ENOXAPARIN 40 MG/0.4 ML SYRINGE SQ SCH (08:52)
[2022-07-22] MEDS: SIMETHICONE 40 MG/0.6 ML DROPS 2,000 MG/30 ML BOTTLE PO PRN (08:52)
[2022-07-22] MEDS: PANTOPRAZOLE 40 MG/10 ML VIAL IV SCH (08:52)
[2022-07-22] MEDS: ALBUTEROL NEBULIZED 2.5 MG/3 ML INHALATION SCH ×2 (09:13→12:57)
--- NOTE | 2022-07-22 11:21 | P.PN ---
Subjective Progress Note Date: 07/22/22 Patient seen and examined at bedside. Patient denies chest pain, shortness breath, nausea, vomiting, fever, or chills. Patient admits to post surgical abdominal tenderness. Patient is eager to go home today. Patient has no other complaints. Objective - Vital Signs Vital signs: Vital Signs Temp 98.7 F 07/22/22 08:00 Pulse 71 07/22/22 08:00 Resp 18 07/22/22 08:00 BP 135/85 07/22/22 08:00 Pulse Ox 99 07/22/22 09:14 FiO2 Intake & Output 07/21/22 07/22/22 07/22/22 18:59 06:59 18:59 Output Total 4 Balance -4 Weight 115.8 kg Output: Urine 4 Other: Voiding Method Toilet Toilet Toilet # Voids 2 - Exam General: [non toxic], [no distress], [appears at stated age] Derm: [warm], [dry] Head: [atraumatic], [normocephalic], [symmetric] Eyes: [EOMI], [no lid lag], [anicteric sclera] Mouth: [no lip lesion], [mucus membranes moist] Cardiovascular: [S1S2 reg], [no murmur], [positive posterior tibial pulse bila teral], Lungs: [CTA bilateral], [no rhonchi, no rales] , [no accessory muscle use] Abdominal: [soft], [ tender to palpation], [no guarding], [no appreciable organomegaly] Ext: [no gross muscle atrophy], [no edema], [no contractures] Neuro: [ CN II-XI grossly intact], [no focal neuro deficits] Psych: [Alert], [oriented], [appropriate affect] - Labs CBC & Chem 7: 07/21/22 07:27 07/21/22 07:08 Assessment and Plan Assessment: Postoperative nausea -Symptomatic care and management with Reglan 10 mg IVP and/or Zofran 4 mg IVP q 6 hours as needed for nausea/vomiting. -Gentle IV fluid hydration. Hyperthyroidism Continue daily medication regimen with methimazole. GERD GI prophylaxis with Protonix 40 mg daily. Status post Da Carlota assisted laparoscopic sleeve gastrectomy Management per primary admitting general surgery team including DVT prophylaxis, pain management, wound care, and advancement of diet. DVT prophylaxis currently with Lovenox We will continue to monitor and follow up with morning labs and provide further recommendations/orders based on results and clinical course. Patient stable for discharge from a medical standpoint. Thank you for allowing us to participate in the care of this pleasant patient. Do not hesitate to contact us with questions. Someone can be reached from the [facility] hospitalist group all hours of the day at [phone] or via [employer].
[2022-07-22 11:30] LABS: Basophils # (A) 0.02 X 10*3/uL (0.00-0.10); Basophils % (A) 0.3 %; Eosinophils # (A) 0.04 X 10*3/uL (0.04-0.35); Eosinophils % (A) 0.5 %; HGB 12.4 g/dL (12.0-15.0); Immature Grans, Automated 0.5 %; Lymphocytes # (A) 1.52 X 10*3/uL (0.90-5.00); Lymphocytes % (A) 19.4 %; MCH 27.3 pg (27.0-32.0); MCHC 31.8 g/dL (32.0-37.0); MCV 85.7 fL (80.0-97.0); Mean Platelet Volume 9.4 fL (9.5-12.2); Monocytes # (A) 0.56 X 10*3/uL (0.20-1.00); Monocytes % (A) 7.1 %; NRBC Per 100 WBC 0 /100 WBCS (0.0-0.0); Neutrophils # (A) 5.67 X 10*3/uL (1.80-7.70); Neutrophils % (A) 72.2 %; Platelet Count 162 X 10*3/uL (140-440); RBC 4.55 X 10*6/uL (4.10-5.20); RDW 12.4 % (11.5-14.5); WBC 7.85 X 10*3/uL (4.50-10.00)
--- NOTE | 2022-07-22 12:40 | P.DS ---
Providers Date of admission: 07/20/22 13:04 Expected date of discharge: 07/22/22 Attending physician: Vinnie Pozo Consults: 07/20/22 16:27 Consult Physician Routine Consulting Provider: Doris Kessler Consult Reason/Comments: Medical management Do you want consulting provider notified?: Yes Primary care physician: Darshan Neves Hospital Course: Discharge diagnosis 1. Morbid obesity status post laparoscopic sleeve gastrectomy Hospital course This is a 46-year-old female with history of morbid obesity. She is status post laparoscopic sleeve gastrectomy. Her upper GI shows no evidence of leak or obstruction. She is tolerating diet. Her pain is controlled. She is up and ambulating. She is having flatus. She is urinating without difficulty. Her incision sites are clean dry and intact. She is stable for discharge. Please refer to chart for any further details. Physician Surgical Supplies Sterilizer note has been reviewed by physician. Signing provider agrees with the documented findings, assessment, and plan of care. Patient Condition at Discharge: Stable Plan - Discharge Summary Discharge Rx Participant: Yes New Discharge Prescriptions: New bisacodyL [Dulcolax] 5 mg PO DAILY PRN #10 tab PRN Reason: Constipation Simethicone 40 mg/0.6 ml Drops [Mylicon Drops] 40 mg PO PCHS PRN #30 ml PRN Reason: Gas Omeprazole [PriLOSEC] 40 mg PO DAILY #30 cap Ondansetron Odt [Zofran Odt] 4 mg PO Q8HR PRN #9 tab PRN Reason: Nausea HYDROcodone/APAP 5-325MG [[place] 5-325] 1 tab PO Q6HR PRN 2 Days #5 tab PRN Reason: Pain Continue methIMAzole [Tapazole] 2.5 mg PO HS Discontinued Omeprazole 40 mg PO HS Discharge Medication List methIMAzole [Tapazole] 2.5 mg PO HS 07/10/22 [History] HYDROcodone/APAP 5-325MG [[place] 5-325] 1 tab PO Q6HR PRN 2 Days #5 tab 07/22/22 [Rx] Omeprazole [PriLOSEC] 40 mg PO DAILY #30 cap 07/22/22 [Rx] Ondansetron Odt [Zofran Odt] 4 mg PO Q8HR PRN #9 tab 07/22/22 [Rx] Simethicone 40 mg/0.6 ml Drops [Mylicon Drops] 40 mg PO PCHS PRN #30 ml 07/22/22 [Rx] bisacodyL [Dulcolax] 5 mg PO DAILY PRN #10 tab 07/22/22 [Rx] Follow up [facility]ment[facility]Ref[facility] [place] [place] [facility] - 07/24/22 Vinnie Pozo MD [Medical Doctor] - 08/05/22 Patient Instructions/Handouts: *Surgery [facility] - Scopalamine Patch Instructions, Nutrition after Bariatric Surgery (DC), Laparoscopic Sleeve Gastrectomy (DC) Activity/Diet/Wound Care/Special Instructions: No driving while taking [place] No lifting over 10 pounds You may shower. No soaking or tub baths for 2 weeks Very light activity until you are reevaluated at your follow up appointment with your surgeon No straws or carbonated beverages Discharge Disposition: HOME SELF-CARE
[2022-07-22 13:49] VITALS: BP 128/78; PULSE 74; TEMP 98.6
== END 2022-07-22 14:49 | disposition home or self-care (01) | DRG 621 ==
LOC: 2ORMAIN 13:04 → 4SSUR 18:01
PROVIDERS: ADMIT Surgery; ATTEND Surgery
PROC: 0DB64Z3 Excision of Stomach, Percutaneous Endoscopic Approach, Vertical (ICD-10-PCS; principal; 2022-07-20 14:25)
PROC: 8E0W4CZ Robotic Assisted Procedure of Trunk Region, Percutaneous Endoscopic Approach (ICD-10-PCS; principal; 2022-07-20 14:25)
DX: E66.01 Morbid (severe) obesity due to excess calories (principal); Z68.36 Body mass index [BMI] 36.0-36.9, adult; G89.18 Other acute postprocedural pain; K91.0 Vomiting following gastrointestinal surgery; K21.9 Gastro-esophageal reflux disease without esophagitis; G47.30 Sleep apnea, unspecified; E05.90 Thyrotoxicosis, unspecified without thyrotoxic crisis or storm; Z98.82 Breast implant status; Z71.3 Dietary counseling and surveillance; Z79.899 Other long term (current) drug therapy
CPT/HCPCS: 74240; 80051; 80053; 82310; 82565; 83735; 84100; 84439; 84443; 84480; 84520; 85025; 86850; 86900; 86901; 88307; 88342; 94760

== ENCOUNTER → 2022-07-24 | Outpatient (CLI) | payer MEDICAID, BC ==
[2022-07-24 11:21] VITALS: PULSE 67; RESP 16
[2022-07-24] MEDS: SODIUM CHLORIDE 0.9% 1,000 ML IV SCH ×2 (11:35→12:44)
[2022-07-24 11:40] LABS: Basophils % (A) 0 %; Eosinophils # (A) 0.1 k/uL (0-0.7); Eosinophils % (A) 2 %; HCT 44.4 % (34.0-46.0); HGB 14.8 gm/dL (11.4-16.0); Lymphocytes # (A) 0.8 k/uL (1.0-4.8); Lymphocytes % (A) 10 %; MCH 27.8 pg (25.0-35.0); MCHC 33.4 g/dL (31.0-37.0); MCV 83.2 fL (80.0-100.0); Monocytes # (A) 0.3 k/uL (0-1.0); Monocytes % (A) 4 %; Neutrophils # (A) 6.9 k/uL (1.3-7.7); Neutrophils % (A) 83 %; Platelet Count 207 k/uL (150-450); RBC 5.34 m/uL (3.80-5.40); RDW 12.5 % (11.5-15.5); WBC 8.3 k/uL (3.8-10.6)
== END ==
LOC: PROCWHC3 11:16
PROVIDERS: ATTEND Surgery
DX: E86.0 Dehydration (principal); Z88.5 Allergy status to narcotic agent; Z88.8 Allergy status to other drugs, medicaments and biological substances
CPT/HCPCS: 85025; 96360; 96361

== ENCOUNTER → 2022-07-24 | Outpatient (CLI) | payer MEDICAID, BC ==
[2022-07-24 11:33] VITALS: BP 101/70; PULSE 73; RESP 12; TEMP 97.9
== END ==
LOC: BARWHC3 10:22
PROVIDERS: ATTEND Surgery
DX: Z71.3 Dietary counseling and surveillance (principal); E66.01 Morbid (severe) obesity due to excess calories; Z88.5 Allergy status to narcotic agent; Z88.8 Allergy status to other drugs, medicaments and biological substances; Z68.45 Body mass index [BMI] 70 or greater, adult
CPT/HCPCS: 99211

== ENCOUNTER → 2022-07-29 | Outpatient (CLI) | payer MEDICAID, BC ==
[2022-07-29 11:13] VITALS: BP 118/84; PULSE 84; RESP 16; TEMP 97.8; BMI 35.6
== END ==
LOC: BARWHC3 10:52
PROVIDERS: ATTEND Surgery
DX: Z71.3 Dietary counseling and surveillance (principal); E66.01 Morbid (severe) obesity due to excess calories; Z88.5 Allergy status to narcotic agent; Z68.35 Body mass index [BMI] 35.0-35.9, adult; Z88.8 Allergy status to other drugs, medicaments and biological substances
CPT/HCPCS: 97802; 99211

== ENCOUNTER → 2022-08-04 | Outpatient (CLI) | payer MEDICAID, BC ==
[2022-08-04 12:27] VITALS: BP 124/74; PULSE 71; TEMP 97.8; BMI 34.9
--- NOTE | 2022-08-04 12:36 | P.BASOAP ---
Subjective Progress Note Date: 08/04/22 Principal diagnosis: Morbid obesity Patient returns after sleeve gastrectomy 07/20. Doing well overall. She did have some dehydration the first week that required some IV fluids. Doing better now. She did have some dysphagia to eggs yesterday and took Zofran for that reason. She has been quite active walking more than 1 mile daily. No GERD. No vomiting. Objective - Vital Signs Vital signs: Vital Signs Temp 97.8 F 08/04/22 12:25 Pulse 71 08/04/22 12:25 Resp BP 124/74 08/04/22 12:25 Pulse Ox FiO2 Intake & Output 08/03/22 08/04/22 08/04/22 18:59 06:59 18:59 Weight 110.677 kg - Exam Abdomen: Soft, nondistended, incisions clean and dry Assessment/Plan (1) Obesity (BMI 30-39.9) Narrative/Plan: Patient doing well postoperatively. Check one month labs on 08/19. May return to work this Wednesday. Gradually resume normal activities. Follow-up 2-3 weeks. Plan: Date: 08/04/22 Initial Weight: Initial BMI: Current Weight: 110.677 kg Current BMI: 34.9 Type of Surgery: Total Volume in Band: Previous Volume: Volume Removed: Volume Added: Band Size:
== END ==
LOC: BARWHC3 12:07
PROVIDERS: ATTEND Surgery
DX: Z98.84 Bariatric surgery status (principal); E66.01 Morbid (severe) obesity due to excess calories; Z68.35 Body mass index [BMI] 35.0-35.9, adult; Z88.5 Allergy status to narcotic agent; Z88.8 Allergy status to other drugs, medicaments and biological substances
CPT/HCPCS: 99211

== ENCOUNTER 2022-08-07 19:58 | Observation (INO) | payer MEDICAID, BC ==
[2022-08-07] MEDS ORDERED: SODIUM CHLORIDE 0.9% 1,000 ML IV STA (20:25)
[2022-08-07] MEDS ORDERED: ONDANSETRON 4 MG/2 ML VIAL IVP STA (20:26)
[2022-08-07 21:07] LABS: Glucose,Whole Blood 80 mg/dL (70-110)
[2022-08-07 21:20] LABS: Basophils # (A) 0.1 k/uL (0-0.2); Basophils % (A) 1 %; Eosinophils # (A) 0.2 k/uL (0-0.7); Eosinophils % (A) 3 %; HCT 46.7 % (34.0-46.0); HGB 15.7 gm/dL (11.4-16.0); Lymphocytes # (A) 1.3 k/uL (1.0-4.8); Lymphocytes % (A) 21 %; MCHC 33.5 g/dL (31.0-37.0); MCV 83.6 fL (80.0-100.0); Mean Platelet Volume 7.1; Monocytes # (A) 0.5 k/uL (0-1.0); Monocytes % (A) 8 %; Neutrophils # (A) 4.1 k/uL (1.3-7.7); Neutrophils % (A) 66 %; Platelet Count 218 k/uL (150-450); RBC 5.59 m/uL (3.80-5.40); RDW 12.9 % (11.5-15.5); WBC 6.2 k/uL (3.8-10.6)
--- NOTE | 2022-08-07 21:31 | ED ---
General Adult HPI - General Chief complaint: Syncope Stated complaint: Fall-head injury Time Seen by Provider: 08/07/22 20:19 Source: patient Mode of arrival: ambulatory Limitations: no limitations - History of Present Illness Initial comments: Patient is a 46-year-old female presenting with chief complaint of syncope. Patient states that she has been feeling nauseous and weak for a few days. She admits to vomiting, states that she cannot hold anything down. While she was sitting on a bench in the shower she fell to the side hitting her head on the wall. Daughter at bedside states that patient lost consciousness for a very short period of time. Patient recently got gastric sleeve on 07/21. Her surgeon is Dr. Pozo. Patient states that this episode has happened one other time since her surgery. She was seen at the [facility], she was given 2 bags of fluids and they monitored her for 2 hours, she was discharged home and today. She denies any chest pain or difficulty breathing. No abdominal pain. Slight headache in area of impact, no neck pain. No numbness or tingling. No palpitations. - Related Data Home Medications Medication Instructions Recorded Confirmed methIMAzole [Tapazole] 2.5 mg PO HS 07/10/22 08/05/22 Previous Rx's Medication Instructions Recorded HYDROcodone/APAP 5-325MG [[place] 1 tab PO Q6HR PRN 2 Days #5 tab 07/22/22 5-325] Omeprazole [PriLOSEC] 40 mg PO DAILY #30 cap 07/22/22 Ondansetron Odt [Zofran Odt] 4 mg PO Q8HR PRN #9 tab 07/22/22 Simethicone 40 mg/0.6 ml Drops 40 mg PO PCHS PRN #30 ml 07/22/22 [Mylicon Drops] bisacodyL [Dulcolax] 5 mg PO DAILY PRN #10 tab 07/22/22 Allergies Allergy/AdvReac Type Severity Reaction Status Date / Time meperidine [From Demerol] AdvReac Confusion Verified 07/24/22 11:18 morphine AdvReac Confusion, Verified 07/24/22 11:18 itchy Review of Systems ROS Statement: Those systems with pertinent positive or pertinent negative responses have been documented in the HPI. ROS Other: All systems not noted in ROS Statement are negative. 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 w/no problems,. hyperthyroid History of Any Multi-Drug Resistant Organisms: None Reported Past Surgical History: Bariatric Surgery, Breast Surgery, Hysterectomy, Tubal Ligation Additional Past Surgical History / Comment(s): breast implants, LEEP procedure, EGD Past Anesthesia/Blood Transfusion Reactions: Postoperative Nausea & Vomiting (PONV) Additional Past Anesthesia/Blood Transfusion Reaction / Comment(s): PONV x1, no hx. of blood transfusion reaction Past Psychological History: No Psychological Hx Reported Smoking Status: Never smoker Past Alcohol Use History: None Reported Past Drug Use History: None Reported - Past Family History Mother Family Medical History: No Reported History General Exam Limitations: no limitations General appearance: alert, in no apparent distress Head exam: Present: atraumatic, normocephalic, normal inspection Eye exam: Present: normal appearance, PERRL, EOMI. Absent: scleral icterus, conjunctival injection, periorbital swelling Neck exam: Present: normal inspection. Absent: tenderness Respiratory exam: Present: normal lung sounds bilaterally. Absent: respiratory distress, wheezes, rales, rhonchi, stridor Cardiovascular Exam: Present: regular rate, normal rhythm, normal heart sounds. Absent: systolic murmur, diastolic murmur, rubs, gallop, clicks GI/Abdominal exam: Present: soft. Absent: distended, tenderness, guarding, rebound, rigid Neurological exam: Present: alert, oriented X3, CN II-XII intact Psychiatric exam: Present: normal affect, normal mood Skin exam: Present: warm, dry, intact, normal color. Absent: rash Course Vital Signs 08/07/22 08/07/22 08/07/22 20:07 20:18 22:03 Temperature 98.3 F 98.4 F 98.4 F Pulse Rate 84 78 68 Respiratory 16 16 16 Rate Blood Pressure 129/95 135/78 110/78 O2 Sat by Pulse 99 98 98 Oximetry Medical Decision Making - Medical Decision Making Patient is a 46-year-old female presenting after an episode of syncope at home. Patient has been experiencing nausea vomiting and weakness since Wednesday. She had a recent gastric sleeve placed by Dr. Pozo. Has had no episode of these symptoms before and was treated as an outpatient at the bariat[facility] Center. On examination no focal neurological deficits, no abdominal tenderness to palpation. Patient is given nausea medication and fluids. Patient is dehydrated, urine shows 4+ ketones. Lites are WNL. CBC shows no leukocytosis or anemia. Patient is negative for Covid and influenza. Chest x-rays negative for any acute process. KUB x-ray shows nonacute abdomen. CT of the brain and cervical spine shows no acute process. I discussed this patient with Dr. Pozo, he advised admitting for dehydration and intractable nausea and vomiting, he requested a CT abdomen and pelvis with oral contrast following the bariatric protocol. Also requested consultation internal medicine. She is agreeable with this plan. I discussed this case with my attending Dr. Mercado - Lab Data Result diagrams: 08/07/22 20:53 08/07/22 20:53 Lab Results 08/07/22 08/07/22 08/07/22 Range/Units 20:42 20:42 20:53 WBC 6.2 (3.8-10.6) k/uL RBC 5.59 H (3.80-5.40) m/uL Hgb 15.7 (11.4-16.0) gm/dL Hct 46.7 H (34.0-46.0) % MCV 83.6 (80.0-100.0) fL MCH 28.0 (25.0-35.0) pg MCHC 33.5 (31.0-37.0) g/dL RDW 12.9 (11.5-15.5) % Plt Count 218 (150-450) k/uL MPV 7.1 Neutrophils % 66 % Lymphocytes % 21 % Monocytes % 8 % Eosinophils % 3 % Basophils % 1 % Neutrophils # 4.1 (1.3-7.7) k/uL Lymphocytes # 1.3 (1.0-4.8) k/uL Monocytes # 0.5 (0-1.0) k/uL Eosinophils # 0.2 (0-0.7) k/uL Basophils # 0.1 (0-0.2) k/uL PT (9.0-12.0) sec INR (<1.2) APTT (22.0-30.0) sec Sodium (137-145) mmol/L Potassium (3.5-5.1) mmol/L Chloride (98-107) mmol/L Carbon Dioxide (22-30) mmol/L Anion Gap mmol/L BUN (7-17) mg/dL Creatinine (0.52-1.04) mg/dL Est GFR (CKD-EPI)AfAm (>60 ml/min/1.73 sqM) Est GFR (CKD-EPI)NonAf (>60 ml/min/1.73 sqM) Glucose (74-99) mg/dL POC Glucose (mg/dL) (70-110) mg/dL POC Glu Flagsetter ID Calcium (8.4-10.2) mg/dL Magnesium (1.6-2.3) mg/dL Total Bilirubin (0.2-1.3) mg/dL AST (14-36) U/L ALT (4-34) U/L Alkaline Phosphatase (38-126) U/L Troponin I (0.000-0.034) ng/mL Total Protein (6.3-8.2) g/dL Albumin (3.5-5.0) g/dL Urine Color Urine Appearance (Clear) Urine pH (5.0-8.0) Ur Specific [place] (1.001-1.035) Urine Protein (Negative) Urine Glucose (UA) (Negative) Urine Ketones (Negative) Urine Blood (Negative) Urine Nitrite (Negative) Urine Bilirubin (Negative) Urine Urobilinogen (<2.0) mg/dL Ur Leukocyte Esterase (Negative) Urine RBC (0-5) /hpf Urine WBC (0-5) /hpf Ur Squamous Epith Cells (0-4) /hpf Urine Bacteria (None) /hpf Hyaline Casts (0-2) /lpf Urine Mucus (None) /hpf Coronavirus (PCR) Not Detected (Not Detectd) Influenza Type A RNA Not Detected (Not Detectd) Influenza Type B (PCR) Not Detected (Not Detectd) 08/07/22 08/07/22 08/07/22 Range/Units 20:53 20:53 20:53 WBC (3.8-10.6) k/uL RBC (3.80-5.40) m/uL Hgb (11.4-16.0) gm/dL Hct (34.0-46.0) % MCV (80.0-100.0) fL MCH (25.0-35.0) pg MCHC (31.0-37.0) g/dL RDW (11.5-15.5) % Plt Count (150-450) k/uL MPV Neutrophils % % Lymphocytes % % Monocytes % % Eosinophils % % Basophils % % Neutrophils # (1.3-7.7) k/uL Lymphocytes # (1.0-4.8) k/uL Monocytes # (0-1.0) k/uL Eosinophils # (0-0.7) k/uL Basophils # (0-0.2) k/uL PT 12.1 H (9.0-12.0) sec INR 1.1 (<1.2) APTT 25.5 (22.0-30.0) sec Sodium 139 (137-145) mmol/L Potassium 4.4 (3.5-5.1) mmol/L Chloride 102 (98-107) mmol/L Carbon Dioxide 22 (22-30) mmol/L Anion Gap 15 mmol/L BUN 11 (7-17) mg/dL Creatinine 0.66 (0.52-1.04) mg/dL Est GFR (CKD-EPI)AfAm >90 (>60 ml/min/1.73 sqM) Est GFR (CKD-EPI)NonAf >90 (>60 ml/min/1.73 sqM) Glucose 81 (74-99) mg/dL POC Glucose (mg/dL) (70-110) mg/dL POC Glu Flagsetter ID Calcium 9.6 (8.4-10.2) mg/dL Magnesium 1.8 (1.6-2.3) mg/dL Total Bilirubin 0.7 (0.2-1.3) mg/dL AST 24 (14-36) U/L ALT 21 (4-34) U/L Alkaline Phosphatase 65 (38-126) U/L Troponin I <0.012 (0.000-0.034) ng/mL Total Protein 7.5 (6.3-8.2) g/dL Albumin 5.2 H (3.5-5.0) g/dL Urine Color Urine Appearance (Clear) Urine pH (5.0-8.0) Ur Specific [place] (1.001-1.035) Urine Protein (Negative) Urine Glucose (UA) (Negative) Urine Ketones (Negative) Urine Blood (Negative) Urine Nitrite (Negative) Urine Bilirubin (Negative) Urine Urobilinogen (<2.0) mg/dL Ur Leukocyte Esterase (Negative) Urine RBC (0-5) /hpf Urine WBC (0-5) /hpf Ur Squamous Epith Cells (0-4) /hpf Urine Bacteria (None) /hpf Hyaline Casts (0-2) /lpf Urine Mucus (None) /hpf Coronavirus (PCR) (Not Detectd) Influenza Type A RNA (Not Detectd) Influenza Type B (PCR) (Not Detectd) 08/07/22 08/07/22 Range/Units 21:06 22:08 WBC (3.8-10.6) k/uL RBC (3.80-5.40) m/uL Hgb (11.4-16.0) gm/dL Hct (34.0-46.0) % MCV (80.0-100.0) fL MCH (25.0-35.0) pg MCHC (31.0-37.0) g/dL RDW (11.5-15.5) % Plt Count (150-450) k/uL MPV Neutrophils % % Lymphocytes % % Monocytes % % Eosinophils % % Basophils % % Neutrophils # (1.3-7.7) k/uL Lymphocytes # (1.0-4.8) k/uL Monocytes # (0-1.0) k/uL Eosinophils # (0-0.7) k/uL Basophils # (0-0.2) k/uL PT (9.0-12.0) sec INR (<1.2) APTT (22.0-30.0) sec Sodium (137-145) mmol/L Potassium (3.5-5.1) mmol/L Chloride (98-107) mmol/L Carbon Dioxide (22-30) mmol/L Anion Gap mmol/L BUN (7-17) mg/dL Creatinine (0.52-1.04) mg/dL Est GFR (CKD-EPI)AfAm (>60 ml/min/1.73 sqM) Est GFR (CKD-EPI)NonAf (>60 ml/min/1.73 sqM) Glucose (74-99) mg/dL POC Glucose (mg/dL) 80 (70-110) mg/dL POC Glu Flagsetter ID [place], [place] Calcium (8.4-10.2) mg/dL Magnesium (1.6-2.3) mg/dL Total Bilirubin (0.2-1.3) mg/dL AST (14-36) U/L ALT (4-34) U/L Alkaline Phosphatase (38-126) U/L Troponin I (0.000-0.034) ng/mL Total Protein (6.3-8.2) g/dL Albumin (3.5-5.0) g/dL Urine Color Yellow Urine Appearance Cloudy H (Clear) Urine pH 6.0 (5.0-8.0) Ur Specific [place] 1.031 (1.001-1.035) Urine Protein 1+ H (Negative) Urine Glucose (UA) Negative (Negative) Urine Ketones 4+ H (Negative) Urine Blood Negative (Negative) Urine Nitrite Negative (Negative) Urine Bilirubin 1+ H (Negative) Urine Urobilinogen 6.0 (<2.0) mg/dL Ur Leukocyte Esterase Trace H (Negative) Urine RBC 8 H (0-5) /hpf Urine WBC 7 H (0-5) /hpf Ur Squamous Epith Cells 4 (0-4) /hpf Urine Bacteria Few H (None) /hpf Hyaline Casts 1 (0-2) /lpf Urine Mucus Many H (None) /hpf Coronavirus (PCR) (Not Detectd) Influenza Type A RNA (Not Detectd) Influenza Type B (PCR) (Not Detectd) Disposition Clinical Impression: Dehydration, Intractable nausea and vomiting Disposition: ADMITTED IP TO THIS [facility] Condition: Fair Time of Disposition: 23:10 Decision to Admit Reason: Admit from EC Decision Date: 08/07/22 Decision Time: 23:10
[2022-08-07 21:36] LABS: INR 1.1 (<1.2); Partial Thromboplastin Time 25.5 sec (22.0-30.0); Prothrombin Time 12.1 sec (9.0-12.0)
[2022-08-07 21:47] LABS: ALT 21 U/L (4-34); AST 24 U/L (14-36); African American GFR (CKD) >90 (>60 ml/min/1.73 sqM); Albumin 5.2 g/dL (3.5-5.0); Alkaline Phosphatase 65 U/L (38-126); Anion Gap 15 mmol/L; Blood Urea Nitrogen 11 mg/dL (7-17); Calcium 9.6 mg/dL (8.4-10.2); Carbon Dioxide 22 mmol/L (22-30); Chloride 102 mmol/L (98-107); Glucose 81 mg/dL (74-99); Magnesium 1.8 mg/dL (1.6-2.3); Non-African American GFR(CKD) >90 (>60 ml/min/1.73 sqM); Potassium 4.4 mmol/L (3.5-5.1); Sodium 139 mmol/L (137-145); Total Bilirubin 0.7 mg/dL (0.2-1.3); Total Protein 7.5 g/dL (6.3-8.2)
[2022-08-07] MEDS ORDERED: METOCLOPRAMIDE 5 MG/ML 2 ML VIAL IVP STA (22:10)
--- NOTE | 2022-08-07 22:18 | CT ---
EXAM: CT Head Without Intravenous Contrast CLINICAL HISTORY: ITS.REASON CT Reason: syncope TECHNIQUE: Axial computed tomography images of the head/brain without intravenous contrast. CTDI is 45.2 mGy and DLP is 1074 mGy-cm. This CT exam was performed using one or more of the following dose reduction techniques: automated exposure control, adjustment of the mA and/or kV according to patient size, and/or use of iterative reconstruction technique. COMPARISON: No relevant prior studies available. FINDINGS: Brain: Unremarkable. No hemorrhage. No significant white matter disease. No edema. Ventricles: Unremarkable. No ventriculomegaly. Bones/joints: Unremarkable. No acute fracture. Soft tissues: Unremarkable. Sinuses: Unremarkable as visualized. No acute sinusitis. Mastoid air cells: Unremarkable as visualized. No mastoid effusion. IMPRESSION: Normal head/brain CT. EXAM: CT Cervical Spine Without Intravenous Contrast CLINICAL HISTORY: ITS.REASON CT Reason: syncope TECHNIQUE: Axial computed tomography images of the cervical spine without intravenous contrast. CTDI is 14.6 mGy and DLP is 452.2 mGy-cm. This CT exam was performed using one or more of the following dose reduction techniques: automated exposure control, adjustment of the mA and/or kV according to patient size, and/or use of iterative reconstruction technique. COMPARISON: No relevant prior studies available. FINDINGS: Vertebrae: Mild degenerative facet arthrosis on the left at C3-4. No acute fracture. Soft tissues: Unremarkable. DISCS/SPINAL CANAL/NEURAL FORAMINA: C2-C3: Unremarkable. No significant disc disease. No stenosis. C3-C4: The disc is within normal limits. [place] degenerative facet arthrosis. C4-C5: Unremarkable. No significant disc disease. No stenosis. C5-C6: Unremarkable. No significant disc disease. No stenosis. C6-C7: Unremarkable. No significant disc disease. No stenosis. C7-T1: Unremarkable. No significant disc disease. No stenosis. IMPRESSION: No acute findings in the cervical spine.
--- NOTE | 2022-08-07 22:25 | XR ---
EXAM: XR Abdomen, 1 View CLINICAL HISTORY: ITS.REASON XR Reason: recent gastric sleeve TECHNIQUE: Frontal supine view of the abdomen/pelvis. COMPARISON: No relevant prior studies available. FINDINGS: Gastrointestinal tract: No dilated bowel loops are seen. Bones/joints: Unremarkable. Soft tissues: There are surgical clips in the left upper quadrant of the abdomen. Other findings: No abnormal gas collections are seen. IMPRESSION: No acute findings.
[2022-08-07 22:34] LABS: Appearance,Urine Cloudy (Clear); Bacteria,Urine Few /hpf; Bilirubin,Urine 1+ (Negative); Blood,Urine Negative (Negative); Color,Urine Yellow; Glucose,Urine (UA) Negative (Negative); Hyaline Casts,Urine 1 /lpf (0-2); Leukocyte Esterase,Urine Trace (Negative); Mucus,Urine Many /hpf; Nitrite,Urine Negative (Negative); Protein,Urine 1+ (Negative); RBC,Urine 8 /hpf (0-5); Specific Gravity,Urine 1.031 (1.001-1.035); Squamous Epithelial Cell,Urine 4 /hpf (0-4); WBC,Urine 7 /hpf (0-5)
[2022-08-07 22:56] LABS: Ketones,Urine 4+ (Negative)
[2022-08-07] MEDS ORDERED: IOPAMIDOL CONTRAST (ORAL USE) VIAL PO PRN (23:05)
[2022-08-07] MEDS ORDERED: NALOXONE 0.4 MG/ML 1 ML VIAL IV PRN (23:07)
[2022-08-07] MEDS ORDERED: ONDANSETRON 4 MG/2 ML VIAL IVP PRN (23:07)
--- NOTE | 2022-08-07 23:07 | XR ---
EXAMINATION TYPE: XR chest 2V DATE OF EXAM: 08/07/2022 COMPARISON: NONE HISTORY: Syncope TECHNIQUE: FINDINGS: Heart and mediastinum are normal. Lungs are clear. Diaphragm is normal. Bony thorax appears normal. Pulmonary vascularity is normal. IMPRESSION: Normal chest.
[2022-08-07] MEDS: SODIUM CHLORIDE 0.9% 1,000 ML IV SCH (23:30)
--- NOTE | 2022-08-08 00:59 | CT ---
EXAMINATION TYPE: CT abdomen pelvis w con DATE OF EXAM: 08/08/2022 COMPARISON: None HISTORY: vomiting CT DLP: 1817.9 mGycm Automated exposure control for dose reduction was used. CONTRAST: Performed with IV Contrast, patient injected with 100 mL of Isovue 300. Images obtained from the diaphragm to the floor the pelvis with the oral and IV contrast. There is bilateral mild pleural effusions. There is mild subsegmental atelectasis at the lung bases. There is bilateral breast implants. Heart size is normal. No pericardial effusion. Liver spleen and stomach appear intact. There is mixed attenuation consistent with a hemangioma in th e posterior superior right lobe of the liver measuring 2 cm. Gallbladder appears normal. The bile stevie ts are not dilated. There is gastric deformity from the gastric surgery. There is no adrenal mass. Kidneys have normal size and contour. No hydronephrosis. Ureters are not di lated. No retroperitoneal adenopathy. Appendix is posterior and appears normal. The bladder distends smoothly. No inguinal hernia. No free fluid in the pelvis. No pelvic mass. There are a few sigmoid di verticula. No diverticulitis. No mesenteric edema. No ascites or free air. No sign of a bowel obstruction The lumbar vertebrae have normal spacing and alignment. No compression fracture. Posterior elements a re intact. Bony pelvis is intact. The hip joints are intact. Sacroiliac joints are intact. IMPRESSION: Bilateral small pleural effusions. Small hemangioma in the posterior superior right lobe of the liver . No renal stone or obstruction. Normal appendix..
[2022-08-08] MEDS: SODIUM CHLORIDE 0.9% 1,000 ML IV SCH ×3 (06:00→20:34)
--- NOTE | 2022-08-08 10:41 | P.GSHP ---
History of Present Illness H&P Date: 08/08/22 Chief Complaint: Intractable nausea 46-year-old female known to our service. Approximate 3 weeks ago patient underwent elective laparoscopic sleeve gastrectomy. Patient apparently over the last 4-5 days and experiencing recurrent nausea with intermittent dry heaves. She says she was not having dysphagia necessarily but was not able to keep much down. Patient denies abdominal pain. She had an episode of syncope yesterday after taking a shower which is similar to what happened to her 10-14 days ago. Patient came to the ER for evaluation. Patient was hydrated in the ER. CAT scan abdomen and pelvis was obtained to rule out any complications at the sleeve site which showed no evidence of leak or significant inflammation. Patient's labs look good. She is still nauseous this morning. 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 w/no problems,. hyperthyroid History of Any Multi-Drug Resistant Organisms: None Reported Past Surgical History: Bariatric Surgery, Breast Surgery, Hysterectomy, Tubal Ligation Additional Past Surgical History / Comment(s): breast implants, LEEP procedure, EGD Past Anesthesia/Blood Transfusion Reactions: Postoperative Nausea & Vomiting (PONV) Additional Past Anesthesia/Blood Transfusion Reaction / Comment(s): PONV x1, no hx. of blood transfusion reaction Past Psychological History: No Psychological Hx Reported Smoking Status: Never smoker Past Alcohol Use History: None Reported Past Drug Use History: None Reported - Past Family History Mother Family Medical History: No Reported History Medications and Allergies Home Medications Medication Instructions Recorded Confirmed Type methIMAzole [Tapazole] 2.5 mg PO HS 07/10/22 08/08/22 History HYDROcodone/APAP 5-325MG [[place] 1 tab PO Q6HR PRN 2 Days #5 tab 07/22/22 08/08/22 Rx 5-325] Omeprazole [PriLOSEC] 40 mg PO DAILY #30 cap 07/22/22 08/08/22 Rx Ondansetron Odt [Zofran Odt] 4 mg PO Q8HR PRN #9 tab 07/22/22 08/08/22 Rx Simethicone 40 mg/0.6 ml Drops 40 mg PO PCHS PRN #30 ml 07/22/22 08/08/22 Rx [Mylicon Drops] bisacodyL [Dulcolax] 5 mg PO DAILY PRN #10 tab 07/22/22 08/08/22 Rx Allergies Allergy/AdvReac Type Severity Reaction Status Date / Time meperidine [From Demerol] AdvReac Confusion Verified 07/24/22 11:18 morphine AdvReac Confusion, Verified 07/24/22 11:18 itchy Surgical - Exam Vital Signs Temp Pulse Resp BP Pulse Ox 98.3 F 84 16 129/95 99 08/07/22 20:07 08/07/22 20:07 08/07/22 20:07 08/07/22 20:07 08/07/22 20:07 Physical exam: General: Well-developed, well-nourished HEENT: Normocephalic, sclerae nonicteric Abdomen: Nontender, nondistended, incisions clean and dry Extremities: No edema Neuro: Alert and oriented Results - Labs 08/07/22 20:53 08/07/22 20:53 Abnormal Lab Results - Last 24 Hours (Table) 08/07/22 08/07/22 08/07/22 Range/Units 20:53 20:53 20:53 RBC 5.59 H (3.80-5.40) m/uL Hct 46.7 H (34.0-46.0) % PT 12.1 H (9.0-12.0) sec Albumin 5.2 H (3.5-5.0) g/dL Urine Appearance (Clear) Urine Protein (Negative) Urine Ketones (Negative) Urine Bilirubin (Negative) Ur Leukocyte Esterase (Negative) Urine RBC (0-5) /hpf Urine WBC (0-5) /hpf Urine Bacteria (None) /hpf Urine Mucus (None) /hpf 08/07/22 Range/Units 22:08 RBC (3.80-5.40) m/uL Hct (34.0-46.0) % PT (9.0-12.0) sec Albumin (3.5-5.0) g/dL Urine Appearance Cloudy H (Clear) Urine Protein 1+ H (Negative) Urine Ketones 4+ H (Negative) Urine Bilirubin 1+ H (Negative) Ur Leukocyte Esterase Trace H (Negative) Urine RBC 8 H (0-5) /hpf Urine WBC 7 H (0-5) /hpf Urine Bacteria Few H (None) /hpf Urine Mucus Many H (None) /hpf Diabetes panel 08/07/22 Range/Units 20:53 Sodium 139 (137-145) mmol/L Potassium 4.4 (3.5-5.1) mmol/L Chloride 102 (98-107) mmol/L Carbon Dioxide 22 (22-30) mmol/L BUN 11 (7-17) mg/dL Creatinine 0.66 (0.52-1.04) mg/dL Glucose 81 (74-99) mg/dL Calcium 9.6 (8.4-10.2) mg/dL AST 24 (14-36) U/L ALT 21 (4-34) U/L Alkaline Phosphatase 65 (38-126) U/L Total Protein 7.5 (6.3-8.2) g/dL Albumin 5.2 H (3.5-5.0) g/dL Calcium panel 08/07/22 Range/Units 20:53 Calcium 9.6 (8.4-10.2) mg/dL Albumin 5.2 H (3.5-5.0) g/dL Pituitary panel 08/07/22 Range/Units 20:53 Sodium 139 (137-145) mmol/L Potassium 4.4 (3.5-5.1) mmol/L Chloride 102 (98-107) mmol/L Carbon Dioxide 22 (22-30) mmol/L BUN 11 (7-17) mg/dL Creatinine 0.66 (0.52-1.04) mg/dL Glucose 81 (74-99) mg/dL Calcium 9.6 (8.4-10.2) mg/dL Adrenal panel 08/07/22 Range/Units 20:53 Sodium 139 (137-145) mmol/L Potassium 4.4 (3.5-5.1) mmol/L Chloride 102 (98-107) mmol/L Carbon Dioxide 22 (22-30) mmol/L BUN 11 (7-17) mg/dL Creatinine 0.66 (0.52-1.04) mg/dL Glucose 81 (74-99) mg/dL Calcium 9.6 (8.4-10.2) mg/dL Total Bilirubin 0.7 (0.2-1.3) mg/dL AST 24 (14-36) U/L ALT 21 (4-34) U/L Alkaline Phosphatase 65 (38-126) U/L Total Protein 7.5 (6.3-8.2) g/dL Albumin 5.2 H (3.5-5.0) g/dL Assessment and Plan (1) Intractable nausea and vomiting Narrative/Plan: 46-year-old female with intractable nausea and vomiting after recent sleeve gastrectomy. Begin scopolamine patch. Add Decadron 4 mg when necessary. Resume bariatric full liquid diet. Ambulate. Continue IV hydration. Current Visit: Yes Status: Acute Code(s): R11.2 - NAUSEA WITH VOMITING, UNSPECIFIED SNOMED Code(s): 302143963
[2022-08-08] MEDS: DEXAMETHASONE SOD PHOSPHATE 4 MG/ML 1 ML VIAL IVP PRN ×2 (10:56→23:34)
[2022-08-08] MEDS ORDERED: SCOPOLAMINE 1 MG/72 HR PATCH TRANSDERM SCH (11:00)
[2022-08-08] MEDS ORDERED: SIMETHICONE 40 MG/0.6 ML DROPS 2,000 MG/30 ML BOTTLE PO PRN (11:04)
[2022-08-08] MEDS ORDERED: bisacodyL 5 MG TABLET.DR PO PRN (11:04)
[2022-08-08 11:21] LABS: T4, Free (Free Thyroxine) 1.62 ng/dL (0.78-2.19)
[2022-08-08] MEDS: PANTOPRAZOLE 40 MG TABLET PO SCH (11:35)
[2022-08-08] MEDS: ONDANSETRON 4 MG/2 ML VIAL IVP PRN ×2 (13:22→18:57)
--- NOTE | 2022-08-08 13:26 | P.CONS ---
History of Present Illness - Reason for Consult Consult date: 08/08/22 Medical management - History of Present Illness Patient is a 46-year-old female with history of hyperthyroidism and obesity presenting with syncopal episode. Patient recently had a bariatric surgery at the beginning of the month. Her postop course has been complicated by dehydration, prior episode of syncope. She received IV fluids in the office at surgery Center. For the last 5 days, she has been having difficulty eating and drinking due to persistent nausea and vomiting. She denies any abdominal pain, constipation, diarrhea. She was in the shower, when she experienced a syncopal episode. She denies having any palpitations, lightheadedness, chest pain, shortness of breath at that time. She denies any history of valvular heart disease. In the ED, her vital signs were unremarkable. EKG showed normal sinus rhythm. CT abdomen and pelvis showed bilateral small pleural effusion, small hemangioma in the posterior superior right lobe of the liver, no renal stone or obstruction, normal appendix. Head CT and cervical spine showed no acute process. Patient seen and examined at bedside. Pertinent positives and negatives as discussed in HPI, a complete review of systems was performed and all other systems are negative. Vital signs reviewed General: nontoxic, no distress, appears at stated age Derm: warm, dry Head: atraumatic, normocephalic, symmetric Eyes: EOMI, no lid lag, anicteric sclera, pupils equal round reactive to light ENT: Nose and ears atraumatic Neck: No thyromegaly, supple Mouth: no lip lesion, mucus membranes moist Cardiovascular: S1S2 reg, no murmur, no edema Lungs: clear to auscultation bilateral, no rhonchi, no rales, no wheeze, no accessory muscle use Abdominal: soft, nontender to palpation, no guarding, no appreciable organomegaly Ext: no gross muscle atrophy, muscle strength muscle strength 5 out of 5 in all 4 extremities, no contractures Neuro: CN II-XII grossly intact Psych: Alert, oriented, appropriate affect Assessment/Plan: Syncope -Likely in the setting of dehydration and poor oral intake -Orthostatic vitals not done on admission, pending -Telemetry -Echo to see any valvular dysfunction -Continue IV fluids Hyperthyroidism -TSH, free T4 pending -Continue methimazole Nausea and vomiting History of recent bariatric surgery -Management per surgical service -DVT prophylaxis per surgery Thank you for allowing us to participate in the care of this pleasant patient. Do not hesitate to contact us with questions. Someone can be reached from the [facility] hospitalist group all hours of the day at [phone] or via [employer]. 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 w/no problems,. hyperthyroid History of Any Multi-Drug Resistant Organisms: None Reported Past Surgical History: Bariatric Surgery, Breast Surgery, Hysterectomy, Tubal Ligation Additional Past Surgical History / Comment(s): breast implants, LEEP procedure, EGD Past Anesthesia/Blood Transfusion Reactions: Postoperative Nausea & Vomiting (PONV) Additional Past Anesthesia/Blood Transfusion Reaction / Comm: PONV x1, no hx. of blood transfusion reaction Past Psychological History: No Psychological Hx Reported Smoking Status: Never smoker Past Alcohol Use History: None Reported Past Drug Use History: None Reported - Past Family History Mother Family Medical History: No Reported History Medications and Allergies Home Medications Medication Instructions Recorded Confirmed Type methIMAzole [Tapazole] 5 mg PO DAILY 07/10/22 08/08/22 History Omeprazole [PriLOSEC] 40 mg PO DAILY #30 cap 07/22/22 08/08/22 Rx Allergies Allergy/AdvReac Type Severity Reaction Status Date / Time meperidine [From Demerol] AdvReac Confusion Verified 08/08/22 11:33 morphine AdvReac Confusion, Verified 08/08/22 11:33 itchy Physical Exam Vitals: Vital Signs Temp Pulse Pulse Pulse Pulse Pulse Resp 08/08/22 10:13 97.5 F L 70 87 63 18 08/08/22 07:25 97.8 F 64 18 08/08/22 06:24 60 16 08/08/22 05:14 98 F 64 16 08/08/22 04:43 16 08/08/22 03:28 64 16 08/08/22 02:26 64 16 08/07/22 22:03 98.4 F 68 16 08/07/22 20:18 98.4 F 78 16 08/07/22 20:07 98.3 F 84 16 BP BP BP BP BP Pulse Ox 08/08/22 10:13 116/72 108/71 103/63 99 08/08/22 07:25 116/72 97 08/08/22 06:24 110/72 99 08/08/22 05:14 116/70 97 08/08/22 04:43 08/08/22 03:28 120/70 98 08/08/22 02:26 114/73 99 08/07/22 22:03 110/78 98 08/07/22 20:18 135/78 98 08/07/22 20:07 129/95 99 Intake and Output 08/07/22 08/08/22 08/08/22 22:59 06:59 14:59 Other: Weight 109.316 kg 100.5 kg Results CBC & Chem 7: 08/07/22 20:53 08/07/22 20:53 Labs: Abnormal Lab Results - Last 24 Hours (Table) 08/07/22 08/07/22 08/07/22 Range/Units 20:53 20:53 20:53 RBC 5.59 H (3.80-5.40) m/uL Hct 46.7 H (34.0-46.0) % PT 12.1 H (9.0-12.0) sec Albumin 5.2 H (3.5-5.0) g/dL TSH (0.465-4.680) mIU/L Urine Appearance (Clear) Urine Protein (Negative) Urine Ketones (Negative) Urine Bilirubin (Negative) Ur Leukocyte Esterase (Negative) Urine RBC (0-5) /hpf Urine WBC (0-5) /hpf Urine Bacteria (None) /hpf Urine Mucus (None) /hpf 08/07/22 08/07/22 Range/Units 20:53 22:08 RBC (3.80-5.40) m/uL Hct (34.0-46.0) % PT (9.0-12.0) sec Albumin (3.5-5.0) g/dL TSH 0.019 L (0.465-4.680) mIU/L Urine Appearance Cloudy H (Clear) Urine Protein 1+ H (Negative) Urine Ketones 4+ H (Negative) Urine Bilirubin 1+ H (Negative) Ur Leukocyte Esterase Trace H (Negative) Urine RBC 8 H (0-5) /hpf Urine WBC 7 H (0-5) /hpf Urine Bacteria Few H (None) /hpf Urine Mucus Many H (None) /hpf
[2022-08-08] MEDS ORDERED: methIMAzole 5 MG TAB PO SCH (21:00)
[2022-08-08] MEDS ORDERED: MELATONIN 3 MG TABLET PO SCH (21:00)
[2022-08-09] MEDS: SODIUM CHLORIDE 0.9% 1,000 ML IV SCH ×2 (06:24→14:21)
[2022-08-09] MEDS: ONDANSETRON 4 MG/2 ML VIAL IVP PRN ×2 (06:40→12:27)
[2022-08-09 08:22] VITALS: BP 103/62; PULSE 56; RESP 15; TEMP 98
[2022-08-09] MEDS: PANTOPRAZOLE 40 MG TABLET PO SCH (09:32)
--- NOTE | 2022-08-09 10:59 | P.DS ---
Providers Date of admission: 08/07/22 23:16 Expected date of discharge: 08/09/22 Attending physician: Vinnie Pozo Consults: 08/07/22 23:07 Consult Physician Urgent Consulting Provider: Gregorio Tarango Consult Reason/Comments: medical management Do you want consulting provider notified?: Yes Primary care physician: Darshan Neves - Discharge Diagnosis(es) (1) Intractable nausea and vomiting Patient was admitted 2 days ago because of dehydration, nausea vomiting, or syncopal episode. Patient doing better at this time with the anti-emetics and the Decadron that she has received. She is tolerating full liquids at this time although volume seems to be still on the lower side. She would like to go home today. She has no pain. Will advance diet to pured diet at this time. Will plan discharge later today if she is able to ingest enough liquids without nausea or vomiting. Will clear from medical point of view for discharge today as well. Prescription for scopolamine patch and Zofran will be provided on discharge. Current Visit: Yes Status: Acute Patient Condition at Discharge: Fair Plan - Discharge Summary Discharge Rx Participant: No New Discharge Prescriptions: No Action methIMAzole [Tapazole] 5 mg PO DAILY Omeprazole [PriLOSEC] 40 mg PO DAILY #30 cap Discharge Medication List methIMAzole [Tapazole] 5 mg PO DAILY 07/10/22 [History] Omeprazole [PriLOSEC] 40 mg PO DAILY #30 cap 07/22/22 [Rx] Follow up Appointment(s)/Referral(s): Darshan Neves MD [Primary Care Provider] - 1-2 days
--- NOTE | 2022-08-09 11:53 | P.PN ---
Subjective Progress Note Date: 08/09/22 Principal diagnosis: syncope Hospital Course: Patient is a 46-year-old female with history of hyperthyroidism and obesity presenting with syncopal episode. Patient recently had a bariatric surgery at the beginning of the month. Her postop course has been complicated by dehydration, prior episode of syncope. She received IV fluids in the office at surgery Center. For the last 5 days, she has been having difficulty eating and drinking due to persistent nausea and vomiting. She denies any abdominal pain, constipation, diarrhea. She was in the shower, when she experienced a syncopal episode. She denies having any palpitations, lightheadedness, chest pain, shortness of breath at that time. She denies any history of valvular heart disease. In the ED, her vital signs were unremarkable. EKG showed normal sinus rhythm. CT abdomen and pelvis showed bilateral small pleural effusion, small hemangioma in the posterior superior right lobe of the liver, no renal stone or obstruction, normal appendix. Head CT and cervical spine showed no acute proce ss. [facility] has been consulted for medical management. Patient received IV fluids, orthostatic vitals unremarkable. She will require echocardiogram as an outpatient. Subjective: Patient seen and examined at this. No acute events overnight. She denies any further lightheadedness, syncopal episodes. She denies any chest pain, shortness of breath, palpitations, abdominal pain, nausea, vomiting, or diarrhea. She has not had a bowel movement for about 1 week. However, this is normal for her after her surgery. She is able to tolerate small amounts of tomato soup. Pertinent positives and negatives as discussed above, a complete review of systems was performed and all other systems are negative. Vitals Signs Reviewed. General: [nontoxic], [no distress], [appears at stated age] Derm: [warm], [dry] Head: [atraumatic], [normocephalic], [symmetric] Eyes: [EOMI], [no lid lag], [anicteric sclera] Mouth: [no lip lesion], [mucus membranes moist] Cardiovascular: [S1S2 reg], [no murmur] Lungs: [CTA bilateral], [no rhonchi, no rales] , [no accessory muscle use] Abdominal: [soft], [ nontender to palpation], [no guarding], [no appreciable organomegaly] Ext: [no gross muscle atrophy], [no edema], [no contractures] Neuro: [ CN II-XI grossly intact], [no focal neuro deficits] Psych: [Alert], [oriented], [appropriate affect] Assessment and Plan: Syncope -Likely in the setting of dehydration and poor oral intake -Orthostatic vitals not done on admission, now negative -Telemetry -Echo to see any valvular dysfunction, can be done as an outpatient -Encourage oral intake Hyperthyroidism -TSH low, free T4 normal -Continue methimazole Nausea and vomiting - resolved History of recent bariatric surgery -Management per surgical service -DVT prophylaxis per surgery Patient medically optimized for discharge home. Thank you for allowing us to participate in the care of this pleasant patient. Do not hesitate to contact us with questions. Someone can be reached from the [facility] hospitalist group all hours of the day at [phone] or via [employer]. Objective - Vital Signs Vital signs: Vital Signs Temp 98 F 08/09/22 08:00 Pulse 56 L 08/09/22 08:00 Resp 15 08/09/22 08:00 BP 103/62 08/09/22 08:00 Pulse Ox 97 08/09/22 08:00 FiO2 Intake & Output 08/08/22 08/09/22 08/09/22 18:59 06:59 18:59 Weight 100.5 kg Other: # Voids 1 2 - Labs CBC & Chem 7: 08/07/22 20:53 08/07/22 20:53
[2022-08-09] MEDS: DEXAMETHASONE SOD PHOSPHATE 4 MG/ML 1 ML VIAL IVP PRN (12:27)
== END 2022-08-09 15:50 | disposition home or self-care (01) ==
LOC: EC 19:58 → 6NMEDSUR 23:16 → 5NMEDONC 08-08 02:31 → 6NMEDSUR 08-08 16:00
PROVIDERS: ADMIT Surgery; ATTEND Surgery
DX: E86.0 Dehydration (principal); R55 Syncope and collapse; W18.2XXA Fall in (into) shower or empty bathtub, initial encounter; R11.2 Nausea with vomiting, unspecified; D18.03 Hemangioma of intra-abdominal structures; E05.90 Thyrotoxicosis, unspecified without thyrotoxic crisis or storm; E66.9 Obesity, unspecified; Z68.31 Body mass index [BMI] 31.0-31.9, adult; Z20.822 Contact with and (suspected) exposure to COVID-19; Z98.82 Breast implant status; Z98.890 Other specified postprocedural states; Z98.84 Bariatric surgery status; Z90.710 Acquired absence of both cervix and uterus; Z98.51 Tubal ligation status; K21.9 Gastro-esophageal reflux disease without esophagitis; Z79.899 Other long term (current) drug therapy; Z88.5 Allergy status to narcotic agent
CPT/HCPCS: 96376 ×4; 96375 ×2; 96361 ×3; 96374; 99285; 36415; 93005; 84439; 80053; 84443; 83735; 84484; 85025; 85610; 85730; 81001; 87502; 87635; 71046; 74018; 72125; 70450; 74177; G0378 ×4; J1100 ×2; J2765; J2405 ×3; Q9967

== ENCOUNTER → 2022-08-11 | Outpatient (CLI) | payer MEDICAID, BC ==
[2022-08-11 12:52] VITALS: BP 115/79; PULSE 70; RESP 16; TEMP 97.9; BMI 35.4
--- NOTE | 2022-08-11 18:19 | P.BASOAP ---
Subjective Progress Note Date: 08/11/22 Principal diagnosis: Morbid obesity Patient returns for recheck. She was admitted over the weekend because of dehydration and weakness. Patient had a second near syncopal episode that led to that admission. Today's weight 247 1 week ago to 44. Patient is 3 weeks post sleeve gastrectomy. The patient has not been drinking her protein shakes because of the taste. She says she is doing better on the pured diet because of the taste of the food. Says she has significant nausea with anything that is suite. She has been taking an approximate 60-70 ounces of liquids daily since discharge. No pain. Patient did return to work today. Her shift went from 4 AM to noon today. Objective - Vital Signs Vital signs: Vital Signs Temp 97.9 F 08/11/22 12:49 Pulse 70 08/11/22 12:49 Resp 16 08/11/22 12:49 BP 115/79 08/11/22 12:49 Pulse Ox FiO2 Intake & Output 08/10/22 08/11/22 08/11/22 18:59 06:59 18:59 Weight 112.037 kg - Exam Abdomen: Soft, nondistended, incisions clean, nontender Assessment/Plan (1) Obesity (BMI 30-39.9) Narrative/Plan: Patient doing better at this time. Continue monitoring closely liquid and protein intake. Patient has an appointment already scheduled for one week from now. She will be seen by dietary at that time. Plan: Date: 08/11/22 Initial Weight: 131.088 kg Initial BMI: 41.4 Current Weight: 112.037 kg Current BMI: 35.4 Type of Surgery: Vertical Sleeve Gastrectomy Total Volume in Band: Previous Volume: Volume Removed: Volume Added: Band Size:
== END ==
LOC: BARWHC3 12:37
PROVIDERS: ATTEND Surgery
DX: Z48.815 Encounter for surgical aftercare following surgery on the digestive system (principal); E66.01 Morbid (severe) obesity due to excess calories; Z68.35 Body mass index [BMI] 35.0-35.9, adult; Z88.8 Allergy status to other drugs, medicaments and biological substances; Z88.5 Allergy status to narcotic agent
CPT/HCPCS: 99211

== ENCOUNTER → 2022-08-18 | Outpatient (CLI) | payer MEDICAID, BC ==
[2022-08-18 13:23] VITALS: BP 120/57; PULSE 65; RESP 16; TEMP 98; BMI 35.4
--- NOTE | 2022-08-18 15:36 | P.BASOAP ---
Subjective Progress Note Date: 08/18/22 Principal diagnosis: morbid obesity patient returns for recheck. She was last seen 1 week ago. She stopped her Zofran. She still has her scopolamine patch in place. She is doing better with her liquid intake. She is also taking her protein drinks daily. Mild back pain that she thinks may be related to the recent fall. No heartburn. Objective - Vital Signs Vital signs: Vital Signs Temp 98 F 08/18/22 13:21 Pulse 65 08/18/22 13:21 Resp 16 08/18/22 13:21 BP 120/57 08/18/22 13:21 Pulse Ox FiO2 Intake & Output 08/17/22 08/18/22 08/18/22 18:59 06:59 18:59 Weight 112.037 kg - Exam patient doing well after recent sleeve gastrectomy. Nausea seems to be improved. No siabdominal pain at this time. Continue monitoring liquid intake. Continue optimizing protein intake. Patient is walking 2 miles per day. Follow up one month. Assessment/Plan Plan: Date: 08/18/22 Initial Weight: 131.088 kg Initial BMI: 41.4 Current Weight: 112.037 kg Current BMI: 35.4 Type of Surgery: Total Volume in Band: Previous Volume: Volume Removed: Volume Added: Band Size:
== END ==
LOC: BARWHC3 12:39
PROVIDERS: ATTEND Surgery
DX: Z48.815 Encounter for surgical aftercare following surgery on the digestive system (principal); E66.01 Morbid (severe) obesity due to excess calories; Z98.84 Bariatric surgery status; Z68.35 Body mass index [BMI] 35.0-35.9, adult; Z88.8 Allergy status to other drugs, medicaments and biological substances; Z88.5 Allergy status to narcotic agent
CPT/HCPCS: 97803; 99211

== ENCOUNTER → 2022-10-06 | Outpatient (CLI) | payer MEDICAID, BC ==
[2022-10-06 13:54] VITALS: BP 123/79; PULSE 77; RESP 16; TEMP 97.9; BMI 32.7
--- NOTE | 2022-10-06 14:10 | P.BASOAP ---
Subjective Progress Note Date: 10/06/22 Principal diagnosis: Morbid obesity Patient returns for recheck. Last seen on 08/18. Doing well since that time. She has lost almost 20 pounds. No further nausea. Only taking omeprazole for her stomach. Her hyperthyroidism improving she says. Dysphagia to eggs. Objective - Vital Signs Vital signs: Vital Signs Temp 97.9 F 10/06/22 13:51 Pulse 77 10/06/22 13:51 Resp 16 10/06/22 13:51 BP 123/79 10/06/22 13:51 Pulse Ox FiO2 Intake & Output 10/05/22 10/06/22 10/06/22 18:59 06:59 18:59 Weight 103.419 kg - Exam Abdomen: Soft, nontender, nondistended Assessment/Plan (1) Obesity (BMI 30-39.9) Narrative/Plan: Patient doing well at this time. Continue dietary and exercise regimen. Follow-up 4-6 weeks. Check three-month labs at that time. Plan: Date: 10/06/22 Initial Weight: 131.088 kg Initial BMI: 41.4 Current Weight: 103.419 kg Current BMI: 32.7 Type of Surgery: Vertical Sleeve Gastrectomy Total Volume in Band: Previous Volume: Volume Removed: Volume Added: Band Size:
== END ==
LOC: BARWHC3 13:41
PROVIDERS: ATTEND Surgery
DX: E66.01 Morbid (severe) obesity due to excess calories (principal); Z68.32 Body mass index [BMI] 32.0-32.9, adult; Z88.5 Allergy status to narcotic agent; Z46.51 Encounter for fitting and adjustment of gastric lap band; Z71.3 Dietary counseling and surveillance
CPT/HCPCS: 97803; 99211

== ENCOUNTER → 2023-01-05 | Outpatient (CLI) | payer MEDICAID, BC ==
[2023-01-05 13:20] VITALS: BP 122/79; PULSE 64; RESP 16; TEMP 97.5; BMI 30.2
--- NOTE | 2023-01-05 16:22 | P.BASOAP ---
Subjective Progress Note Date: 01/05/23 Principal diagnosis: Morbid obesity Patient returns for recheck. She was last seen 11/17. No GERD symptoms. No lightheadedness. She says she has been more emotional lately. On her cruise she gained 7 pounds. Following the cruise she has lost 12 pounds. Still not tolerating scrambled eggs. Objective - Vital Signs Vital signs: Vital Signs Temp 97.5 F L 01/05/23 13:18 Pulse 64 01/05/23 13:18 Resp 16 01/05/23 13:18 BP 122/79 01/05/23 13:18 Pulse Ox FiO2 Intake & Output 01/04/23 01/05/23 01/05/23 18:59 06:59 18:59 Weight 95.708 kg - Exam Abdomen: Soft, nontender, nondistended Assessment/Plan (1) Obesity (BMI 30-39.9) Narrative/Plan: Patient doing well after prior sleeve gastrectomy. She is doing well with her weight loss. Plan follow-up 6-8 weeks. Check 6 month labs at that time. Plan: Date: 01/05/23 Initial Weight: 131.088 kg Initial BMI: 41.4 Current Weight: 95.708 kg Current BMI: 30.2 Type of Surgery: Vertical Sleeve Gastrectomy Total Volume in Band: Previous Volume: Volume Removed: Volume Added: Band Size:
== END ==
LOC: BARWHC3 12:47
PROVIDERS: ATTEND Surgery
DX: E66.01 Morbid (severe) obesity due to excess calories (principal); Z98.84 Bariatric surgery status; Z68.30 Body mass index [BMI] 30.0-30.9, adult; Z88.5 Allergy status to narcotic agent
CPT/HCPCS: 99211

== ENCOUNTER → 2023-02-23 | Outpatient (CLI) | payer MEDICAID, BC ==
[2023-02-23 13:14] VITALS: BP 115/70; PULSE 59; RESP 16; TEMP 97.7; BMI 29.4
--- NOTE | 2023-02-23 13:49 | P.BASOAP ---
Subjective Progress Note Date: 02/23/23 Principal diagnosis: morbid obesity patient returns for reevaluation. She had her 6 month labs performed. These looked normal. Dysphagia to salad on a few occasions. Still taking antiacids daily. No heartburn complaints. Objective - Vital Signs Vital signs: Vital Signs Temp 97.7 F 02/23/23 13:12 Pulse 59 L 02/23/23 13:12 Resp 16 02/23/23 13:12 BP 115/70 02/23/23 13:12 Pulse Ox FiO2 Intake & Output 02/22/23 02/23/23 02/23/23 18:59 06:59 18:59 Weight 92.986 kg - Exam Abdomen: Soft, nontender, nondistended Assessment/Plan (1) Obesity (BMI 30-39.9) Narrative/Plan: patient doing well at this time. Continue dietary and exercise regimen. Patient going to the gym 5 days per week. Recent labs reviewed. patient will start trying to utilize antiacids every other day for now. Plan recheck 2 months. Plan: Date: 02/23/23 Initial Weight: 131.088 kg Initial BMI: 41.4 Current Weight: 92.986 kg Current BMI: 29.4 Type of Surgery: Vertical Sleeve Gastrectomy Total Volume in Band: Previous Volume: Volume Removed: Volume Added: Band Size:
== END ==
LOC: BARWHC3 12:53
PROVIDERS: ATTEND Surgery
DX: Z71.3 Dietary counseling and surveillance (principal); Z68.29 Body mass index [BMI] 29.0-29.9, adult; Z88.8 Allergy status to other drugs, medicaments and biological substances; Z88.5 Allergy status to narcotic agent
CPT/HCPCS: 97803; 99211

== ENCOUNTER → 2023-05-04 | Outpatient (CLI) | payer MEDICAID, BC ==
[2023-05-04 13:09] VITALS: BP 124/78; PULSE 54; RESP 16; TEMP 98.3; BMI 27.3
--- NOTE | 2023-05-04 13:23 | P.BASOAP ---
Subjective Progress Note Date: 05/04/23 Principal diagnosis: Morbid obesity Patient returns for recheck. Last seen 2 months ago. Since then she has actually lost 14 pounds. She stopped taking her antiacids and has no reflux. Dysphagia only to scrambled eggs at times. Doing quite well she says. Still going to the gym 5 days per week. Objective - Vital Signs Vital signs: Vital Signs Temp 98.3 F 05/04/23 13:07 Pulse 54 L 05/04/23 13:07 Resp 16 05/04/23 13:07 BP 124/78 05/04/23 13:07 Pulse Ox FiO2 Intake & Output 05/03/23 05/04/23 05/04/23 18:59 06:59 18:59 Weight 86.636 kg - Exam Abdomen: Soft, nontender, nondistended Assessment/Plan (1) Obesity (BMI 30-39.9) Narrative/Plan: Patient doing well at this time. Continue dietary and exercise regimen. Follow-up in July. Checked 1 year labs at that time. Plan: Date: 05/04/23 Initial Weight: 131.088 kg Initial BMI: 41.4 Current Weight: 86.636 kg Current BMI: 27.3 Type of Surgery: Vertical Sleeve Gastrectomy Total Volume in Band: Previous Volume: Volume Removed: Volume Added: Band Size:
== END ==
LOC: BARWHC3 12:53
PROVIDERS: ATTEND Surgery
DX: E66.01 Morbid (severe) obesity due to excess calories (principal); Z71.3 Dietary counseling and surveillance; Z88.5 Allergy status to narcotic agent; Z88.8 Allergy status to other drugs, medicaments and biological substances; Z68.27 Body mass index [BMI] 27.0-27.9, adult; Z98.84 Bariatric surgery status
CPT/HCPCS: 99211

== ENCOUNTER → 2023-05-06 | Outpatient (CLI) | payer MEDICAID, BC ==
--- NOTE | 2023-05-06 11:50 | US ---
EXAMINATION TYPE: US thyroid st tissue head/neck DATE OF EXAM: 05/06/2023 COMPARISON: NONE CLINICAL INDICATION: Female, 47 years old with history of E04.1 SINGLE THYROID NODULE;follow up exam GLAND SIZE: Right Lobe: 5.1 x 1.5 x 1.4 cm Overall Parenchyma: heterogenous Left Lobe: 4.0 x 1.4 x 1.5 cm Overall Parenchyma: heterogenous Isthmus Thickness: 0.3 cm NODULES RIGHT: # of nodules measured on right: 1 1. 0.8 X 0.8 x 0.4 cm, lower , solid or almost completely solid, hyperechoic nodule, which is wider than tall, with smooth margins, without echogenic foci. Prior size: 0.7 x 0.6 x 0.6 cm LEFT: # of nodules measured on left: 1 1. 0.7 X 0.8 x 0.4 cm, upper , solid or almost completely solid, hypoechoic nodule, which is wider than tall, with smooth margins, without echogenic foci. Prior size: 0.9 x 0.9 x 0.6 cm ISTHMUS: # of nodules measured in the isthmus: 0 Bilateral neck scanned, no evidence of lymphadenopathy. IMPRESSION: TR4 moderately suspicious fine-needle aspiration if greater than or equal to 1.5 cm. 2017 ACR TI-RADS LEVEL: *Highest TI-RADS level nodule reported
--- NOTE | 2023-05-07 10:06 | MM ---
Reason for Exam: Hx of breast augmentation, asymptomatic. Last mammogram was performed 1 year(s) and 1 month(s) ago. Patient History: Menarche at age 16. First Full-Term at age 20. Hysterectomy at age 32. 2019, Implant(s). Risk Values: Juana 5 year model risk: 0.6%. NCI Lifetime model risk: 6.3%. Prior Study Comparison: 11/08/2019 Bilateral Screening Mammogram, [facility]. 02/06/2021 Bilateral Screening Mammogram, [facility]. 03/20/2022 Bilateral MG 3D screen mammo imp/cad., [facility]. Tissue Density: The breast tissue is heterogeneously dense. This may lower the sensitivity of mammography. Findings: Analyzed By CAD. Bilateral breast implants. There is no suspicious group of microcalcifications or new suspicious mass in either breast. Overall Assessment: Benign, BI-RAD 2 Management: Screening Mammogram of both breasts in [address] [facility] will attempt to contact patient to return for supplemental views and ultrasound if indicated. Patient should continue monthly self-breast exams. A clinical breast exam by your physician is recommended on an annual basis. This exam should not preclude additional follow-up of suspicious palpable abnormalities. Note on Juana scores and lifetime risk: 1. A Juana score greater than 3% is considered moderate risk. If this is the case, consider specialist referral to assess eligibility for a risk reducing agent. 2. If overall lifetime risk for the development of breast cancer is 20% or higher, the patient may qualify for future screening with alternating mammogram and breast MRI. Electronically signed and approved by: Epi Ching DO
== END | disposition home or self-care (01) ==
LOC: RADUSWWP 10:55
PROVIDERS: ATTEND Family Medicine
DX: Z12.31 Encounter for screening mammogram for malignant neoplasm of breast (principal); E04.2 Nontoxic multinodular goiter
CPT/HCPCS: 76536; 77063; 77067

== ENCOUNTER → 2023-07-20 | Outpatient (CLI) | payer MEDICAID, BC ==
--- NOTE | 2023-07-20 12:20 | P.BASOAP ---
Subjective Progress Note Date: 07/20/23 Principal diagnosis: Morbid obesity Patient returns for recheck. Last seen 3 months ago. This is her one-year anniversary. She has lost 10 pounds since her last visit. Still exercising 5-6 times per week. No GERD, no dysphagia. Patient having chronic headaches and asking about NSAID use. Objective - Vital Signs Vital signs: Vital Signs Temp 97.6 F 07/20/23 12:07 Pulse 59 L 07/20/23 12:07 Resp BP 125/80 07/20/23 12:07 Pulse Ox FiO2 Intake & Output 07/19/23 07/20/23 07/20/23 18:59 06:59 18:59 Weight 82.1 kg - Exam Abdomen: Soft, nontender, nondistended Assessment/Plan (1) Obesity (BMI 30-39.9) Narrative/Plan: Patient doing well at this time. Continue dietary and exercise regimen. She had her recent one year labs which looked great. Follow-up 6 months. Plan: Date: 07/20/23 Initial Weight: 131.088 kg Initial BMI: 41.4 Current Weight: 82.1 kg Current BMI: 25.9 Type of Surgery: Total Volume in Band: Previous Volume: Volume Removed: Volume Added: Band Size:
[2023-07-20 12:21] VITALS: BP 125/80; PULSE 59; TEMP 97.6; BMI 25.9
== END ==
LOC: BARWHC3 11:52
PROVIDERS: ATTEND Surgery
DX: E66.01 Morbid (severe) obesity due to excess calories (principal); R51.9 Headache, unspecified; Z71.3 Dietary counseling and surveillance; Z88.5 Allergy status to narcotic agent; Z88.8 Allergy status to other drugs, medicaments and biological substances; Z68.26 Body mass index [BMI] 26.0-26.9, adult
CPT/HCPCS: 99211

== ENCOUNTER → 2024-01-18 | Outpatient (CLI) | payer MEDICAID, BC ==
[2024-01-18 16:01] VITALS: BP 121/78; PULSE 54; TEMP 97.6; BMI 22.8
--- NOTE | 2024-01-18 16:33 | P.BASOAP ---
Subjective Progress Note Date: 01/18/24 Principal diagnosis: Morbid obesity 48-year-old female returns for recheck. She has done quite well. Last seen in July. She has lost another 22 pounds since then. BMI now 22.8. Patient says she is running a 5K 3 times per week at the gym and going to the gym a total of 6 times per week. Denies nausea or vomiting. Her headache is resolved. She went through a breast lift in October and did well with that. She is no longer taking any antiacids or even her thyroid medications. Objective - Vital Signs Vital signs: Vital Signs Temp 97.6 F 01/18/24 15:41 Pulse 54 L 01/18/24 15:41 Resp BP 121/78 01/18/24 15:41 Pulse Ox FiO2 Intake & Output 01/17/24 01/18/24 01/18/24 18:59 06:59 18:59 Weight 72.121 kg - Exam Abdomen: Soft, nontender, nondistended Assessment/Plan (1) Obesity (BMI 30-39.9) Narrative/Plan: 48-year-old female doing well after previous sleeve gastrectomy. Continue dietary and exercise regimen. Monitor ongoing weight loss. Follow-up in July for 2-year annual visit. Will check 2-year labs at that time. Plan: Date: 01/18/24 Initial Weight: 131.088 kg Initial BMI: 41.4 Current Weight: 72.121 kg Current BMI: 22.8 Type of Surgery: Total Volume in Band: Previous Volume: Volume Removed: Volume Added: Band Size:
== END ==
LOC: BARWHC3 15:33
PROVIDERS: ATTEND Surgery
DX: E66.01 Morbid (severe) obesity due to excess calories (principal); Z68.39 Body mass index [BMI] 39.0-39.9, adult; Z71.3 Dietary counseling and surveillance; Z88.5 Allergy status to narcotic agent; Z88.8 Allergy status to other drugs, medicaments and biological substances; Z90.3 Acquired absence of stomach [part of]
CPT/HCPCS: 99211

== ENCOUNTER 2024-05-01 04:39 | Emergency (ER) | payer MEDICAID, BC ==
[2024-05-01] MEDS ORDERED: HYDROmorphone 0.5 MG/0.5 ML SYRINGE ONE (06:55)
[2024-05-01] MEDS ORDERED: ONDANSETRON 4 MG/2 ML VIAL ONE (06:55)
[2024-05-01] MEDS ORDERED: diphenhydrAMINE 50 MG/ML 1 ML VIAL ONE (06:56)
[2024-05-01] MEDS ORDERED: SODIUM CHLORIDE 0.9% 1,000 ML BAG ONE (07:00)
--- NOTE | 2024-05-23 12:38 | CT ---
EXAMINATION TYPE: CT abdomen pelvis w con DATE OF EXAM: 05/01/2024 COMPARISON: NONE HISTORY: 48-year-old female right-sided abdominal pain that radiates to the back TECHNIQUE: Contiguous axial scanning of the abdomen and pelvis following administration of 100 ml Iso graciela 300 IV contrast. Delayed images through the kidneys and coronal/sagittal reconstructions perform ed. CT DLP: 739 mGycm Automated exposure control for dose reduction was used. FINDINGS: Partially visualized bilateral breast implants. Heart normal size without pericardial effus ion. Some dependent atelectasis noted at the lower lobes. Liver mildly enlarged at 19.0 cm. Lesion posterior right hepatic dome measuring at least 2.5 cm and s hows peripheral nodular enhancement and progressive filling most compatible with a benign hemangioma. No biliary ductal dilatation. Portal venous system is patent. Postsurgical change of previous sleeve gastrectomy. No dilated small bowel or free air. No mesenteric or retroperitoneal lymphadenopathy seen. The main pancreatic duct has a caliber of 4 mm at the level of the pancreatic head, borderline to mil dly dilated. No focal lesion is identified. No associated fluid collection. Gallbladder, adrenal glands, kidneys, spleen within normal limits. No dilated small bowel, free fluid, or free air. No mesenteric or retroperitoneal lymphadenopathy seen. Normal appendix. Mild overall stool burden. No pericolic inflammatory change. Bladder partially distended. Uterus surgically absent. Right ovary not clearly delineated from adjace nt bowel. There is a 5.0 x 3.5 cm cyst within the left adnexa and mild pelvic free fluid present. No pelvic lymphadenopathy seen. Some varices are noted at the upper right femoral chain/right inguinal r egion. Bones: No osseous destructive process. IMPRESSION: 1. MAIN PANCREATIC DUCT BORDERLINE DILATED UP TO 4 MM WHICH MAY BE CHRONIC FOR THE PATIENT. NO DAJUAN CT FINDINGS OF ACUTE PANCREATITIS. CORRELATE WITH AMYLASE AND LIPASE LEVELS AND CONSIDER A CONSERVATI VE 6-12 MONTH FOLLOW UP PANCREAS MRI TO REASSESS DUCT CALIBER. 2. MILD HEPATOMEGALY AT 19.0 CM WITH INCIDENTAL BENIGN 2.5 CM HEPATIC HEMANGIOMA. 3. STATUS POST SLEEVE GASTRECTOMY AND PREVIOUS HYSTERECTOMY. 4. A 5.0 CM CYST OF THE LEFT ADNEXA. PROBABLY A DOMINANT FOLLICLE OR FUNCTIONAL CYST. MILD PELVIC LINDA E FLUID PROBABLY PHYSIOLOGIC. FOLLOW-UP PELVIC ULTRASOUND IN 6-8 WEEKS TO ENSURE INVOLUTION. 5. SOME INCIDENTAL PROMINENT VARICES IN THE RIGHT INGUINAL REGION/UPPER RIGHT FEMORAL CHAIN.
== END 2024-05-01 11:02 | disposition home or self-care (01) ==
LOC: EC 04:39
CPT/HCPCS: 74177; 96361; 96374; 96375; 99284

== ENCOUNTER → 2024-05-18 | Outpatient (CLI) | payer MEDICAID, BC ==
--- NOTE | 2024-05-18 10:06 | US ---
EXAMINATION TYPE: US gallbladder DATE OF EXAM: 05/18/2024 COMPARISON: 08/08/22 CLINICAL INDICATION: Female, 48 years old with history of R13.11 ABD PAIN; RUQ pain x a couple weeks TECHNIQUE: Multiple sonographic images of the right upper quadrant are obtained. FINDINGS: EXAM MEASUREMENTS: Liver Length: 16.2 cm Gallbladder Wall: 0.22 cm CBD: 0.30 cm Right Kidney: 10.6 x 5.5 x 3.3 cm Pancreas: parts seen appear wnl Liver: appears wnl, hemangioma on CT not seen on today's study Gallbladder: wnl Evidence for sonographic Moreno's sign: No CBD: wnl Right Kidney: dilated renal pelvis. No calyceal dilatation to suggest hydronephrosis. IVC and portal venous system appears to be dilated. IMPRESSION: 1. Apparent dilatation of the IVC and portal venous system. Correlate for any cardiac pathology or po ssibility of underlying portal venous hypertension. 2. No gallstones or biliary ductal dilatation.
== END | disposition home or self-care (01) ==
LOC: RADUSWWP 06:57
PROVIDERS: ATTEND Surgery
DX: R10.11 Right upper quadrant pain (principal)
CPT/HCPCS: 76705

== ENCOUNTER → 2024-06-12 | Outpatient (CLI) | payer MEDICAID, BC ==
--- NOTE | 2024-06-12 16:12 | US ---
EXAMINATION TYPE: US thyroid st tissue head/neck DATE OF EXAM: 06/12/2024 COMPARISON: US CLINICAL INDICATION: Female, 48 years old with history of E041 NONTOXIC SINGLE THYROID; F/U nodules GLAND SIZE: Right Lobe: 4.5 x 1.2 x 1.8 cm Overall Parenchyma: heterogeneous Left Lobe: 3.8 x 1.3 x 1.4 cm Overall Parenchyma: heterogeneous Isthmus Thickness: 0.3 cm NODULES RIGHT: # of nodules measured on right: 1 1. 0.6 X 0.5 x 0.5 cm, lower, Prior size: 0.8 x 0.4 x 0.8 cm TIRADS Score: 3 TIRADS Category 3: Mildly Suspicious Composition: Solid or almost completely solid (2 points). Echogenicity: Hyperechoic or isoechoic (1 point). Shape: Wider than tall (0 points). Margin: Smooth (0 points). Echogenic foci: None or large comet-tail artifacts (0 points) Recommendation: If >2.5cm: FNA; If >1.5cm: Follow up at 1,3,5 years LEFT: # of nodules measured on left: 1 1. 0.7 X 0.5 x 0.8 cm, upper medial, Prior size: 0.7 x 0.4 x 0.8 cm TIRADS Score: 4 TIRADS Category 4: Moderately Suspicious Composition: Solid or almost completely solid (2 points). Echogenicity: Hypoechoic (2 points). Shape: Wider than tall (0 points). Margin: Smooth (0 points). Echogenic foci: None or large comet-tail artifacts (0 points) Recommendation: If >1.5cm: FNA; If >1cm: Follow up at 1,2, 3,5 years ISTHMUS: # of nodules measured in the isthmus: 0 Bilateral neck scanned, no evidence of lymphadenopathy. Stable sub-centimeter nodules. IMPRESSION: Heterogenous thyroid gland with stable subcentimeter thyroid nodules. 2017 ACR TI-RADS LEVEL: *Highest TI-RADS level nodule reported [facility], Workstation: [id number], 06/12/2024 4:10 PM
--- NOTE | 2024-06-12 16:26 | US ---
EXAMINATION TYPE: US pelvis complete transvag DATE OF EXAM: 06/12/2024 COMPARISON: CT CLINICAL INDICATION: Female, 48 years old with history of [id number] OVARIAN CYST; Left Ovarian cyst visu alized on CT TECHNIQUE: Transvaginal (TV) and Transabdominal (TA) . Transabdominal sonographic images of the pel vis were acquired. Transvaginal sonographic images were medically necessary to better assess the fol lowing anatomy: Ovaries Date of LMP: 2007 1. Uterus: Surgically absent 2. Endometrium: Surgically absent 3. Right Ovary: Many peristalsing bowel loops obscuring visualization of ovary 4. Left Ovary: Many peristalsing bowel loops obscuring visualization of ovary 5. Bilateral Adnexa: wnl 6. Posterior cul-de-sac: wnl IMPRESSION: No evidence for lymphadenopathy or pelvic mass. No acute process. [facility], , 06/12/2024 4:24 PM
== END | disposition home or self-care (01) ==
LOC: RADUSWWP 15:43
PROVIDERS: ATTEND Family Medicine
CPT/HCPCS: 76536; 76830; 76856

== ENCOUNTER → 2024-06-14 | Outpatient (CLI) | payer MEDICAID, BC ==
--- NOTE | 2024-06-15 13:45 | MM ---
Reason for Exam: Screening (asymptomatic). Last mammogram was performed 1 year(s) and 2 month(s) ago. Patient History: Menarche at age 16. First Full-Term at age 20. Hysterectomy at age 32. 2019, Implant(s). Risk Values: Ju[place] 5 year model risk: 0.6%. NCI Lifetime model risk: 6.2%. Prior Study Comparison: 02/06/2021 Bilateral Screening Mammogram, [facility]. 03/20/2022 Bilateral MG 3D screen mammo imp/cad., [facility]. 05/06/2023 Bilateral MG 3D screen mammo imp/cad., [facility]. Tissue Density: There are scattered areas of fibroglandular density. Findings: Analyzed By CAD. Bilateral breast implants appear intact. Right breast: There is no suspicious group of microcalcifications or new suspicious mass. Left breast: There is no suspicious group of microcalcifications or new suspicious mass. Overall Assessment: Negative, BI-RAD 1 Management: Screening Mammogram of both breasts in [address] [facility] will attempt to contact patient to return for supplemental views and ultrasound if indicated. Patient should continue monthly self-breast exams. A clinical breast exam by your physician is recommended on an annual basis. This exam should not preclude additional follow-up of suspicious palpable abnormalities. Note on Juana scores and lifetime risk: 1. A Juana score greater than 3% is considered moderate risk. If this is the case, consider specialist referral to assess eligibility for a risk reducing agent. 2. If overall lifetime risk for the development of breast cancer is 20% or higher, the patient may qualify for future screening with alternating mammogram and breast MRI. [facility], , 06/15/2024 1:43 PM. Electronically signed and approved by: Epi Ching DO
== END | disposition home or self-care (01) ==
LOC: RADMAMWWP 10:41
PROVIDERS: ATTEND Family Medicine
DX: Z12.31 Encounter for screening mammogram for malignant neoplasm of breast
CPT/HCPCS: 77063; 77067

== ENCOUNTER → 2024-07-18 | Outpatient (CLI) | payer MEDICAID, BC ==
[2024-07-18 14:00] VITALS: BP 112/72; PULSE 55; RESP 16; TEMP 98.1; BMI 21.9
--- NOTE | 2024-07-18 14:26 | P.BASOAP ---
Subjective Progress Note Date: 07/18/24 Principal diagnosis: Morbid obesity Patient returns for reevaluation. She was last seen in January. She has done quite well. She has lost another 6 pounds. BMI 22. No heartburn. No vomiting. Patient was having 1 to 2 months ago some right upper quadrant pain. This was associated with mild nausea. This occurred most days. It has been gone now for the last month. She had a CAT scan and an ultrasound performed. No obvious gallbladder abnormalities. The patient's pancreatic duct is mildly prominent at 4 mm. Follow-up pancreatic MRI in 6 to 12 months was advised by radiology. Patient also had a ovarian cyst and some possible prominence of her venous system. She has had a pelvic ultrasound. Describes history of right-sided lower extremities swollen veins somewhat chronic. Patient had 2-year labs done recently which looked good. Objective - Vital Signs Vital signs: Vital Signs Temp 98.1 F 07/18/24 13:58 Pulse 55 L 07/18/24 13:58 Resp 16 07/18/24 13:58 BP 112/72 07/18/24 13:58 Pulse Ox FiO2 Intake & Output 07/17/24 07/18/24 07/18/24 18:59 06:59 18:59 Weight 69.4 kg - Exam Abdomen: Soft, nontender, nondistended Assessment/Plan (1) Right upper quadrant abdominal pain Narrative/Plan: Patient doing well after previous sleeve gastrectomy 2 years ago. Recent labs checked. Remains quite active. Continue dietary and exercise regimen. Monitor for recurrent abdominal discomfort. Patient states she has plans to follow-up with her primary care physician this week to discuss recent imaging studies and further follow-up tests. Patient will contact me with any difficulties. Otherwise recheck 1 year. Plan: Date: 07/18/24 Initial Weight: 131.088 kg Initial BMI: 41.4 Current Weight: 69.4 kg Current BMI: 21.9 Type of Surgery: Vertical Sleeve Gastrectomy Total Volume in Band: Previous Volume: Volume Removed: Volume Added: Band Size:
== END ==
LOC: BARWHC3 13:51
PROVIDERS: ATTEND Surgery
DX: E66.01 Morbid (severe) obesity due to excess calories (principal); R10.11 Right upper quadrant pain; Z68.21 Body mass index [BMI] 21.0-21.9, adult; Z98.84 Bariatric surgery status; Z90.3 Acquired absence of stomach [part of]; Z88.5 Allergy status to narcotic agent; Z88.8 Allergy status to other drugs, medicaments and biological substances
CPT/HCPCS: 99211

== ENCOUNTER → 2024-08-09 | Outpatient (CLI) | payer MEDICAID, BC ==
--- NOTE | 2024-08-10 11:28 | MR ---
EXAMINATION TYPE: MR abdomen wo con, MR pelvis wo con DATE OF EXAM: 08/09/2024 9:48 PM COMPARISON: CT scan abdomen from 06/12/2024 CT 05/01/2024. CLINICAL INDICATION: Female, 48 years old with history of K83.8 OTHER SPEC DIS OF BILIARY TRACT; PHH, pelvic/abdominal pain. abnormal US/CT (accession [id number]), cyst on ovary, pelvic/abdominal pain. ab normal US/CT (accession [id number]) TECHNIQUE: Multiplanar multi-sequence imaging was performed without contrast. Post contrast imaging was performed. Post IV contrast subtraction images were also submitted for review. Triplane multisequence imaging was performed of the pelvis. IV Contrast: None FINDINGS: LOWER CHEST: Trace bilateral pleural effusions. Bilateral breast implants appear intact. ABDOMEN Liver: Liver is enlarged for size measuring up to 19.1 cm in caudocranial dimension. No evidence for hepatic steatosis or cirrhosis. High T2 cystic structure in the right hepatic lobe within same dictat ions measuring in totality up to 28 x 20 mm. Gallbladder and Bile ducts: No evidence for ductal dilation, or biliary stricture or evidence of chol edocholithiasis. The gallbladder is nondistended with no evidence for cholelithiasis. Pancreas: No ductal dilation. No evidence for solid mass. Main pancreatic duct is within normal limit s for size. Spleen: Normal for size. Adrenal glands: Unremarkable. Kidneys: Intrinsic high T1/low T2 signal 4 mm focus in the left superior kidney compatible with hemor rhagic/proteinaceous cyst. No evidence for obstructive uropathy. No suspicious renal masses. Stomach and Bowel: No evidence for bowel wall thickening or evidence for obstruction. Retroperitoneum/Peritoneum: No evidence of pneumoperitoneum or free fluid. Vasculature: No aortic aneurysm. Musculoskeletal: The osseous structures appear intact. Lymph Nodes: No gross evidence for lymphadenopathy. Abdominal wall: Unremarkable. Reproductive: Vagina: Unremarkable. Uterus: The uterus appears surgically absent. Ovaries: Dominant follicles bilaterally measuring up to 20 mm on the left and 11 mm on the right. Bladder: Unremarkable. Bowel: Unremarkable as visualized. Peritoneum: No free fluid or adenopathy. Lymph nodes: No evidence of adenopathy. Vasculature: Varicosities seen along the right labia majora extending into the right inguinal region. Musculoskeletal: Bone marrow signal is within normal signal intensity. Abdominal wall/soft tissues: Unremarkable. IMPRESSION: 1. Surgically absent uterus, bilateral dominant follicles in the ovaries measuring up to 28 mm on th e left and 11 mm on the right. 2. Main pancreatic duct is within normal limits for size. No evidence for biliary system abnormality . 3. Probable Cluster of cysts in the posterior aspect of the right hepatic lobe. 4. Bilateral breast implants appear intact. 5. Trace bilateral pleural effusions. 6. Left renal hemorrhagic/proteinaceous 4mm cyst. 7. Hepatomegaly. 8. Varicosities in the right inguinal region extending to the right labia majora. [facility], , 08/10/2024 11:25 AM
== END | disposition home or self-care (01) ==
LOC: RADMRIMAIN 20:45
PROVIDERS: ATTEND Family Medicine
DX: K83.8 Other specified diseases of biliary tract (principal); J90 Pleural effusion, not elsewhere classified; R16.0 Hepatomegaly, not elsewhere classified; N28.1 Cyst of kidney, acquired; I86.8 Varicose veins of other specified sites; N83.00 Follicular cyst of ovary, unspecified side; Z90.710 Acquired absence of both cervix and uterus; Z98.82 Breast implant status
CPT/HCPCS: 72195; 74181

== ENCOUNTER 2024-11-15 06:58 | Emergency (ER) | payer MEDICAID, BC ==
[2024-11-15 07:03] VITALS: RESP 18
[2024-11-15] MEDS: diphenhydrAMINE 50 MG/ML 1 ML VIAL IM STA (07:36)
[2024-11-15] MEDS: METOCLOPRAMIDE 5 MG/ML 2 ML VIAL IM STA (07:36)
[2024-11-15] MEDS: KETOROLAC 15 MG/ML 1 ML VIAL IM STA (07:36)
--- NOTE | 2024-11-15 07:36 | ED ---
General Adult HPI - General Chief complaint: Headache Stated complaint: headache Time Seen by Provider: 11/15/24 07:01 Source: patient, RN notes reviewed Mode of arrival: ambulatory Limitations: no limitations - History of Present Illness Initial comments: Patient is a 49-year-old female present to the emergency department with concerns for headache. Onset of symptoms was last night. Symptoms have gradually worsened since that time and started to become severe. Patient did take a dose of Lasix for the first time secondary to water retention and q uestions if this was a factor. Headache is diffuse. Patient has photophobia and nausea. No vomiting. No fever. No weakness. No confusion. Patient does have history of previous headaches and has seen physicians previously and has had had previous imaging. - Related Data Home Medications Medication Instructions Recorded Confirmed Calcium Citrate 250 mg PO DAILY 05/04/23 07/18/24 Multivitamins, Thera [Multivitamin 1 tab PO DAILY 05/04/23 07/18/24 (formulary)] Vitamin C/Biotin [Hair, Skin and 1 tab PO DAILY 05/04/23 07/18/24 Nails Chew] Allergies Allergy/AdvReac Type Severity Reaction Status Date / Time meperidine [From Demerol] AdvReac Confusion Verified 11/15/24 07:02 morphine AdvReac Confusion, Verified 11/15/24 07:02 itchy Review of Systems ROS Statement: Those systems with pertinent positive or pertinent negative responses have been documented in the HPI. ROS Other: All systems not noted in ROS Statement are negative. Constitutional: Denies: fever Eyes: Denies: eye pain ENT: Denies: ear pain Respiratory: Denies: cough Cardiovascular: Denies: chest pain Endocrine: Denies: fatigue Gastrointestinal: Denies: abdominal pain Neurological: Reports: as per HPI, headache. 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 w/no problems,. hyperthyroid History of Any Multi-Drug Resistant Organisms: None Reported Past Surgical History: Bariatric Surgery, Breast Surgery, Hysterectomy, Tubal Ligation Additional Past Surgical History / Comment(s): breast implants, LEEP procedure, EGD Sleeve 07/20/22 Past Anesthesia/Blood Transfusion Reactions: Postoperative Nausea & Vomiting (PONV) Additional Past Anesthesia/Blood Transfusion Reaction / Comment(s): PONV x1, no hx. of blood transfusion reaction Past Psychological History: No Psychological Hx Reported Smoking Status: Never smoker Past Alcohol Use History: None Reported Past Drug Use History: None Reported - Past Family History Mother Family Medical History: No Reported History General Exam Limitations: no limitations General appearance: alert, in no apparent distress Head exam: Present: atraumatic, normocephalic Eye exam: Present: normal appearance, PERRL, EOMI ENT exam: Present: normal exam Neck exam: Present: normal inspection Respiratory exam: Present: normal lung sounds bilaterally Cardiovascular Exam: Present: regular rate, normal rhythm GI/Abdominal exam: Present: soft. Absent: tenderness Neurological exam: Present: alert, oriented X3, CN II-XII intact. Absent: motor sensory deficit Expanded Neurological exam: Present: protecting the airway Patient oriented to: Present: person, place, time Speech: Present: fluid speech Cranial nerves: EOM's Intact: Normal, Facial Sensation: Normal Sensory exam: Upper Extremity Light Touch: Normal, Lower Extremity Light Touch: Normal Motor strength exam: RUE: 5, LUE: 5, RLE: 5, LLE: 5 Eye Response: (4) open spontaneously Motor Response: (6) obeys commands Verbal Response: (5) oriented Psychiatric exam: Present: normal affect, normal mood Skin exam: Present: normal color Course Vital Signs 11/15/24 06:59 Temperature 97.7 F Pulse Rate 74 Respiratory 18 Rate Blood Pressure 150/95 O2 Sat by Pulse 97 Oximetry Medical Decision Making - Medical Decision Making Was pt. sent in by a medical professional or institution (, PA, CIGAR [employer]PER, urgent care, hospital, or prison...) When possible be specific @ -No Did you speak to anyone other than the patient for history (EMS, parent, family, police, friend...)? What history was obtained from this source @ -No Did you review nursing and triage notes (agree or disagree)? Why? @ -I reviewed and agree with nursing and triage notes Were old charts reviewed (outside hosp., previous admission, EMS record, old EKG, old radiological studies, urgent care reports/EKG's, prison records)? Report findings @ -No old charts were reviewed Differential Diagnosis (chest pain, altered mental status, abdominal pain women, abdominal pain men, vaginal bleeding, weakness, fever, dyspnea, syncope, headache, dizziness, GI bleed, back pain, seizure, CVA, palpatations, mental health, musculoskeletal)? @ -Differential Headache: Migraine, tension, cluster, carbon monoxide, central venous thrombosis, pension karma temporal arteritis, acute closure glaucoma, intercranial hemorrhage, mastoiditis, sinusitis, head injury, this is not meant to be an all-inclusive list. EKG interpreted by me (3pts min.). @ -As above X-rays interpreted by me (1pt min.). @ -None done CT interpreted by me (1pt min.). @ -None done U/S interpreted by me (1pt. min.). @ -None done What testing was considered but not performed or refused? (CT, X-rays, U/S, labs)? Why? @ -Imaging was considered however patient does not have red flags and has had previous imaging as well. What meds were considered but not given or refused? Why? @ -None Did you discuss the management of the patient with other professionals (professionals i.e. , PA, CIGAR WR[employer]PER, lab, RT, psych nurse, social services, metal dealer, teacher, title officer, case specialist)? Give summary @ -No Was smoking cessation discussed for >3mins.? @ -No Was critical care preformed (if so, how long)? @ -No Were there social determinants of health that impacted care today? How? (Homelessness, low income, unemployed, alcoholism, drug addiction, transportation, low edu. Level, literacy, decrease access to med. care, long-term, rehab)? @ -No Was there de-escalation of care discussed even if they declined (Discuss DNR or withdrawal of care, Hospice)? DNR status @ -No What co-morbidities impacted this encounter? (DM, HTN, Smoking, COPD, CAD, Cancer, CVA, ARF, Chemo, Hep., AIDS, mental health diagnosis, sleep apnea, morbid obesity)? @ -History of chronic headaches remotely Was patient admitted / discharged? Hospital course, mention meds given and route, prescriptions, significant lab abnormalities, going to OR and other pertinent info. @ -Patient presents with headache, gradual onset. No neurological abnormalities on exam. Patient will be provided medications with follow-up with primary care physician. Undiagnosed new problem with uncertain prognosis? @ -No Drug Therapy requiring intensive monitoring for toxicity (Heparin, Nitro, Insulin, Cardizem)? @ -No Were any procedures done? @ -No Diagnosis/symptom? @ -Cephalgia Acute, or Chronic, or Acute on Chronic? @ -Acute Uncomplicated (without systemic symptoms) or Complicated (systemic symptoms)? @ -Default Side effects of treatment? @ -No Exacerbation, Progression, or Severe Exacerbation? @ -No Poses a threat to life or bodily function? How? (Chest pain, [place], [place], pneumonia, PE, COPD, DKA, ARF, appy, cholecystitis, CVA, Diverticulitis, Homicidal, Suicidal, threat to staff... and all critical care pts) @ -No Disposition Clinical Impression: Headache Disposition: HOME SELF-CARE Condition: Stable Instructions (If sedation given, give patient instructions): Acute Headache (ED) Additional Instructions: Please do follow-up with your primary care physician in the next couple of days for recheck. Return for fever, weakness, worsening or changing symptoms or any other concerns, or confusion. Is patient prescribed a controlled substance at d/c from ED?: No Referrals: Darshan Neves MD [Primary Care Provider] - 1-2 days Time of Disposition: 07:36
[2024-11-15 08:24] VITALS: BP 123/78; PULSE 70; TEMP 98
== END 2024-11-15 08:23 | disposition home or self-care (01) ==
LOC: EC 06:58
DX: R51.9 Headache, unspecified (principal)
CPT/HCPCS: 99283; 96372 ×3; J1200; J2765; J1885